=== PATIENT | female | born 1985 | race Caucasian/White ===

== ENCOUNTER → 2020-08-27 09:13 | Outpatient (CLI) | payer SELFPAY ==
--- NOTE | ~2020-08-27 | US_ITS ---
EXAMINATION: US breast BI limited HISTORY: Bilateral nipple discharge TECHNIQUE: Bilateral subareolar breast ultrasound is performed. FINDINGS: No sonographic correlate is identified for the patient's reported bilateral nipple discharg e. Normal-appearing subareolar ducts are seen without evidence of an intraluminal mass. IMPRESSION: No specific sonographic correlate is identified for the patient's reported nipple discharge. Further evaluation at this time should be based on clinical assessment. Continued follow-up physical examinat ion is recommended. BI-RADS Category 1: Negative Reviewed, dictated and finalized at location A. IMPRESSION: No specific sonographic correlate is identified for the patient's reported nipp le discharge. Further evaluation at this time should be based on clinical asses sment. Continued follow-up physical examination is recommended. BI-RADS Category 1: Negative
== END ==
PROVIDERS: Visit Provider Nurse Practitioner Obstetrics & Gynecology
DX: N64.52 Nipple discharge (principal)
CPT/HCPCS: 76642

== ENCOUNTER 2022-02-24 16:21 | Outpatient (CLI) | payer OTHER, SELFPAY ==
--- NOTE | ~2022-02-24 | XR_ITS ---
EXAMINATION: XR chest 2V DATE: 02/24/2022 16:39 INDICATION: Tobacco use TECHNIQUE: PA and lateral views of the chest are obtained. COMPARISON: 08/27/2019 FINDINGS: The lungs are free of acute opacities. There is no pleural effusion or pneumothorax. The ca rdiomediastinal silhouette is normal. The visualized bones and soft tissues are unremarkable. IMPRESSION: 1. No acute cardiopulmonary abnormality. Reviewed, dictated and finalized at location F.
== END 2022-02-24 16:22 | disposition home or self-care (01) ==
PROVIDERS: PCP Emergency Medicine; Visit Provider Emergency Medicine
DX: Z72.0 Tobacco use (principal)
CPT/HCPCS: 71046

== ENCOUNTER 2023-02-06 11:15 | Emergency (ER) | payer OTHER, SELFPAY ==
--- NOTE | ~2023-02-06 | US_ITS ---
EXAMINATION: US pelvic complete DATE: 02/06/2023 14:00 INDICATION: Right adnexal pain Comparison:No prior studies for comparison. TECHNIQUE: Multiple transabdominal sonographic images of the pelvis performed. FINDINGS: The uterus measures 8.3 x 3.5 x 4.3 cm. The endometrial complex measures 10 mm. The right ovary measures 5.6 x 2.1 x 2.7 cm and the left ovary measures 4.7 x 2.6 x 2.1 cm. There ar e small follicles in each ovary. Normal doppler signal in both ovaries. There is right ovarian cyst m easuring 1.8 cm. There is left ovarian cyst measuring 1.4 cm. There is no free fluid in the pelvis. There are no abnormal masses seen on either side. IMPRESSION: 1. Small bilateral ovarian cysts. Reviewed, dictated and finalized at location B.
[2023-02-06 11:23] VITALS: BP 149/102; PULSE 104; RESP 20; TEMP 36.2; O2SAT 100
[2023-02-06 12:57] LABS: Basophils Percent Auto 0.4 % (0.2-1.2); Eosinophils Percent Auto 0.5 % (0-4.4); Hematocrit 43.4 % (37.0-47.0); Hemoglobin 14.4 g/dL (12.0-15.0); Immature Granulocyte Absolute 0.03 K/mm3 (0.00-0.031); Immature Granulocyte Percent A 0.4 % (0-0.5); Lymphocytes Absolute Auto 2.06 K/mm3 (0.9-3.2); Lymphocytes Percent Auto 26.8 % (18.3-44.2); Mean Corpuscular HGB Conc 33.2 g/dl (32-36); Mean Corpuscular Hemoglobin 34.7 pg (26-34); Mean Corpuscular Volume 104.6 fl (80-100); Mean Platelet Volume 8.7 fl (7.4-10.4); Monocytes Absolute Auto 0.5 K/mm3 (0.1-0.6); Neutrophils Absolute Auto 5.1 K/mm3 (1.3-6.7); Neutrophils Percent Auto 65.9 % (45.5-73.1); Platelet Count Result 251 k/mm3 (150-375); Red Blood Count 4.15 M/mm3 (4.2-5.4); Red Cell Distribution Width 12.2 % (11.5-14.5); White Blood Count 7.7 K/mm3 (4.5-10.0)
[2023-02-06 13:10] LABS: INR 0.9; Prothrombin Time 12.1 Seconds (11.1-14.7)
[2023-02-06 13:11] LABS: Partial Thromboplastin Time 29.4 SECONDS (22.3-36.8)
[2023-02-06 13:14] LABS: Anion Gap 7 mmol/L (8-16); Blood Urea Nitrogen 12 mg/dL (7-17); Calcium 9.1 mg/dL (8.4-10.2); Carbon Dioxide 26 mmol/L (22-30); Chloride 103 mmol/L (98-107); Estimated CRCL calculation 97 ml/min; Estimated Glomerular Filt Rate > 60; Glucose 88 mg/dL (65-110); Potassium 3.8 mmol/L (3.4-5.0); Sodium 136 mmol/L (137-145)
[2023-02-06 13:29] LABS: Beta HCG Quantitative < 2.39 mIU/ML
--- NOTE | 2023-02-06 15:04 | ED.FEMALEGU ---
HPI - Female Genitourinary General Chief complaint: Vaginal Bleeding Stated complaint: Pelvic bleeding Time Seen by Provider: 02/06/23 12:03 Source: patient Mode of arrival: ambulatory Limitations: no limitations History of Present Illness HPI Narrative: 37-year-old otherwise healthy here with complaints of vaginal bleeding since yesterday associated with right lower abdominal pain. She states she passed a small clot her last LMP was 9 days ago. She states that she never had this kind of problem before. She now feels dizzy. No history of fever or chills denies any nausea or vomiting. MD elicited complaint: vaginal bleeding Onset (ago): day(s) (1) Vaginal bleeding: clots Exacerbating factors: none Relieving factors: none Associated symptoms: denies other symptoms Possible : unsure if Date of Last Menstrual Period: 01/28/23 Related Data Allergies Allergy/AdvReac Type Severity Reaction Status Date / Time amoxicillin Allergy Mild Dizziness Verified 02/06/23 11:50 Review of Systems Review of Systems: All systems reviewed & are unremarkable except as noted in HPI and below Constitutional: Constitutional: Reports no additional constitutional complaints Eyes: Eyes: Reports no additional eye complaints ENT: Reports system reviewed and no additional complaints, except as documented Cardiovascular: Cardiovascular: Reports no additional cardiovascular complaints Respiratory: Respiratory: Reports no additional respiratory complaints Gastrointestinal: Gastrointestinal: Reports no additional gastrointestinal complaints Genitourinary: Genitourinary: Reports as per HPI Musculoskeletal: Musculoskeletal: Reports no additional musculoskeletal complaints Integumentary/Breasts: Skin/Breast: Reports system reviewed and no additional complaints, except as docu Neurologic: Reports system reviewed and no additional complaints, except as documented Exam Narrative: GENERAL: Well-appearing, well-nourished, and in no acute distress. HEAD: Normocephalic, atraumatic. EYES: PERRLA and EOMI. NECK: Supple. CHEST: Clear to auscultation. No respiratory distress. HEART: Regular rate and rhythm. No murmur heard. Normal peripheral pulses. ABDOMEN: Soft, very minimal tenderness in the right adnexal area, nondistended, normal active bowel sounds. EXTREMITIES: Normal range of motion. No edema. SKIN: Warm, dry, no rash. NEURO: No focal deficits. Alert and oriented x3. PSYCH: Normal mood and affect. Course Vital Signs Vital signs: Vital Signs Temperature 36.2 C L 02/06/23 11:23 Pulse Rate 104 H 02/06/23 11:23 Respiratory Rate 20 02/06/23 11:23 Blood Pressure 149/102 H 02/06/23 11:23 Pulse Oximetry 100 02/06/23 11:23 Oxygen Delivery Room Air 02/06/23 11:23 Temperature 36.2 C L 02/06/23 11:23 Pulse Rate 104 H 02/06/23 11:23 Respiratory Rate 20 02/06/23 11:23 Blood Pressure 149/102 H 02/06/23 11:23 Pulse Oximetry 100 02/06/23 11:23 Oxygen Delivery Room Air 02/06/23 11:23 MDM - Female Genitourinary MDM Narrative Medical decision making narrative: 37-year-old here with vaginal bleeding since last night passed 1 clot exam is unremarkable except for mild right adnexal pain will do lab work and ultrasound. Differential Diagnosis Differential diagnosis: Likely ovarian cyst, ruptured ovarian cyst and dysmenorrhea Medical Records Attestation: I reviewed the patient's medical records. Lab Data Attestation: I reviewed the patient's lab results. 02/06/23 12:38 02/06/23 12:37 Labs: Lab Results 02/06/23 02/06/23 02/06/23 Range/Units 12:36 12:37 12:37 WBC (4.5-10.0) K/mm3 RBC (4.2-5.4) M/mm3 Hgb (12.0-15.0) g/dL Hct (37.0-47.0) % MCV (80-100) fl MCH (26-34) pg MCHC (32-36) g/dl RDW (11.5-14.5) % Plt Count (150-375) k/mm3 MPV (7.4-10.4) fl Immature Gran % (Auto) (0-0.5) % Neut % (Auto) (45.5-73.1
== END 2023-02-06 15:24 | disposition home or self-care (01) ==
PROVIDERS: Emergency Medicine; Emergency Provider Family Medicine; PCP Emergency Medicine
DX: N93.9 Abnormal uterine and vaginal bleeding, unspecified (principal); N83.202 Unspecified ovarian cyst, left side; N83.201 Unspecified ovarian cyst, right side
CPT/HCPCS: 36415; 76856; 80048; 84702; 85025; 85610; 85730; 86850; 86900; 86901; 99283

== ENCOUNTER 2023-06-29 13:48 | Outpatient (CLI) | payer OTHER, SELFPAY ==
--- NOTE | ~2023-06-29 | XR_ITS ---
Clinical Indication: Chest pain PA and lateral views of the chest: Comparison: 02/24/2022 Findings: The lungs are clear, without evidence of focal consolidation or pleural effusion. Cardiome diastinal silhouette is within normal limits. Bones and soft tissues are unremarkable. Impression: Normal chest. Reviewed, dictated and finalized at location . Impression: Normal chest.
== END 2023-06-29 13:49 | disposition home or self-care (01) ==
LOC: ANHIMG 13:50
PROVIDERS: PCP Emergency Medicine; Visit Provider Emergency Medicine
DX: R07.89 Other chest pain (principal)
CPT/HCPCS: 71046

== ENCOUNTER 2023-10-04 02:26 | Day surgery (SDC) | payer OTHER, SELFPAY ==
[2023-09-27 10:49] VITALS: BMI 23.1
--- NOTE | 2023-09-27 10:52 | PC.NURSE ---
Report to the Outpatient Waiting Room, entrance under the green pavilion located off [facility], at time 11:30AM on date 10-04-23. Planned Procedure Time: 1:30PM. Time changes happen often and if your time is changed the preop area will call you the afternoon before. - You and your visitor will be asked to self-screen and do not enter if you have any COVID symptoms. - A mask is optional within the hospital at this time. Patients may have clear liquids (water, carbonated beverages, clear teas, apple juice) until 3 hours prior to surgery (10:30AM) with a maximum of 20 ounces. - No food from midnight until time of surgery Take the following medications with a SIP of water the morning of surgery: AMLODIPINE DO NOT STOP ANY OF YOUR OTHER PRESCRIPTION MEDICATIONS PRIOR TO SURGERY ?EXCEPT THE FOLLOWING Medications to discontinue per physician: FISH OIL Date to take last dose 09-30-23 Please no make-up, nail german, hairspray, perfume, deodorant, or body powder the day of surgery. No jewelry (including any body piercings) or valuables the day of surgery, leave them at home. Please take a shower or bath the night before, or the morning of, surgery with an antibacterial soap. Wear comfortable, loose fitting clothing. - Jewelry must be removed prior to entering the operating room. Rings and piercings that are not removed may be cut off. - The hospital will not accept responsibility for valuables. - Please leave all valuables, including medications, at home the day of surgery. If you are going home after surgery, a licensed local combination truck driver must drive you home. - NO public transportation without another adult if you receive anesthesia. - We recommend that an adult stay with you for 24 hours following discharge. - We also recommend that you do not drive, make important decision, drink alcoholic beverages, or take any drugs that were not prescribed by your health care provider for at least 24 hours after your discharge time. Follow any additional instructions given to you from your surgeon. If you or anyone in your household have experienced Covid symptoms in the past week, please notify your surgeon or the nurse liaison at the phone number below for possible testing. Telephone instructions given to PATIENT and asked if any additional questions and then verbalized understanding. Patient advised to call surgeon office or pre surgery nurse liaison [phone] if any additional questions.
[2023-10-04 09:56] VITALS: BP 136/89; PULSE 87; RESP 16; TEMP 36.4; O2SAT 100; BMI 23.4
[2023-10-04] MEDS: SCOPOLAMINE 1.5 MG PATCH TRANSDERM (10:02)
[2023-10-04] MEDS: ACETAMINOPHEN 500 MG TABLET 1000 MG PO (10:02)
[2023-10-04] MEDS: LACTATED RINGERS 1,000 ML 30 ML IV CONT (10:03)
--- NOTE | 2023-10-04 10:36 | WPDANESEPPF ---
Anes - Initial Pre Proc Eval Procedure: Operation Date: 10/04/23 12:15 Proposed Procedures p Hysteroscopy with Biopsy of Endometrium and/or Polypectomy - Kevan Tian MD Date/Time: 10/04/23 10:36 Surgeon: Kevan Tian MD Pre Op Diagnosis: Endocervical Polyp Patient Data Age: 37 Gender: F Height: 1.65 m Weight: 63.85 kg Last Vital Signs Temp 36.4 C 10/04/23 09:56 Pulse 87 10/04/23 09:56 Resp 16 10/04/23 09:56 BP 136/89 10/04/23 09:56 Pulse Ox 100 10/04/23 09:56 O2 Del Method Room Air 10/04/23 09:56 Allergies Allergy/AdvReac Type Severity Reaction Status Date / Time amoxicillin AdvReac Mild Dizziness Verified 10/04/23 09:55 Home Medications Medication Instructions Recorded Confirmed Type amlodipine 5 mg tablet 5 mg PO DAILY #30 tabs 08/30/23 10/04/23 Rx omega 3-lmx-kxn-fish oil 1,600 5 ml PO DAILY 08/30/23 10/04/23 History mg-500 mg-800 mg/5 mL oral liquid Patient hx anesthesia problems: none Family hx anesthesia problems: none Results Review: All pre-operative results and documents have been reviewed as part of the pre-operative evaluation. [facility] Past Medical History Medical History (Updated 10/04/23 @ 10:36 by Augustine Rowland MD) Dyslipidemia Hypertension Tobacco abuse Social History Social History Smoking packs per day: 0.5 Smoking cigarettes per day: 10.0 Years smoked: 15 Smoking pack-years: 7.50 Smoking status: Current every day smoker Tobacco type: cigarettes Second hand tobacco smoke exposure: Yes Alcohol intake: current Drinks per week: 8 Alcohol use details: BEER Substance use: never Substance use type: does not use Living arrangements: with family Spiritual care concerns: No Anes - Eval Final PreProcedure Day of Procedure 10/04/23 10:36 Patient weight: normal Heart: regular rate and rhythm Lungs: clear to auscultation Airway: Mallampati scale class II Neurological: alert and oriented Last oral intake: >/= 8 hours ASA classification: II Emergent: no Anesthetic plan: proceed Anesthesia type and monitoring: general LMA and standard monitoring Results Review: All pre-operative results and documents have been reviewed as part of the pre-operative evaluation. Informed Consent: The patient's anesthetic plan and its attendant risks and benefits were discussed with the patient/family/POA. Questions were solicited and answers provided to the satisfaction of the patient/family/POA.
--- NOTE | 2023-10-04 11:25 | WPDHPUPDATE1 ---
History and Physical Update Update Date/Time: 10/04/23 11:25 History and Physical has been reviewed, including an updated exam of the patient. There are NO changes in the patient's condition. Risks, benefits, and alternatives have been discussed and questions answered. Patient agrees to proceed with procedure.
[2023-10-04 12:33] VITALS: BP 121/89; PULSE 86; RESP 14; O2SAT 100
--- NOTE | 2023-10-04 12:33 | W.PM.PROC2 ---
Procedure Note - Detailed Date of Procedure 10/04/23 Pre-op Diagnosis Endometrial polyp /lesion Post-op Diagnosis Same Procedure Performed Hysteroscopy D&C with polypectomy Surgeon Kevan Tian MD Anesthesia MAC Indications abnormal uterine bleeding Findings 2 cm intrauterine polyp / endometrial polyp. Normal vulva, vagina, cervix. Otherwise normal endometrial cavity. Description of Procedure the patient was taken the operating room. She was prepped and draped in the dorsal lithotomy position after induction of mac anesthesia. A speculum was placed in the vagina. The cervix was grasped with a tenaculum. The cervix was dilated about 1 cm. The hysteroscope was inserted. The intrauterine cavity and endocervix were evaluated. Hysteroscope was withdrawn. The polyp was grasped with a polyp forceps and avulsed. A medium-size curette was used to curettage all the surfaces were within the endometrial cavity. the sample was collected on Telfa and sent to pathology. The hysteroscope was reinserted and the above findings were noted. Patient tolerated the procedure well. The speculum and tenaculum were removed. She was taken recovery room in stable condition. Sponge lap and needle counts were correct x2. Estimated Blood Loss 40 Drains No Packing No Pathology Yes Complications No immediate complications Condition Stable Disposition PACU
[2023-10-04 13:00] VITALS: BP 139/81; PULSE 76; RESP 16
[2023-10-04 13:15] VITALS: BP 124/75; PULSE 72; RESP 16
== END 2023-10-04 13:20 | disposition home or self-care (01) ==
PROVIDERS: PCP Emergency Medicine; Visit Provider Obstetrics & Gynecology
PROC: 0U5B8ZZ Destruction of Endometrium, Via Natural or Artificial Opening Endoscopic (ICD-10-PCS; CPT 58563; principal; 2023-10-04 12:15)
DX: N84.0 Polyp of corpus uteri (principal); I10 Essential (primary) hypertension; E78.5 Hyperlipidemia, unspecified; F17.210 Nicotine dependence, cigarettes, uncomplicated
CPT/HCPCS: 58558; 88305; A9270; J1100; J2250; J2405; J2704; J3010; J7120

== ENCOUNTER 2024-07-20 07:18 | Emergency (ER) | payer OTHER, SELFPAY ==
--- NOTE | ~2024-07-20 | CT_ITS ---
EXAMINATION: CT soft tissue neck w con DATE: 07/20/2024 08:46 INDICATION: Dysphagia. TECHNIQUE: Computed tomography (CT) of the neck was performed with 75 mL Omnipaque-350 intravenous co ntrast. Automated exposure control and iterative reconstruction technique were employed. The dose-nghia gth product was 310.62 mGy-cm. COMPARISON: None FINDINGS: There are no pathologically enlarged lymph nodes. There is mucosal thickening in the parana harvinder sinuses. The mastoid air cells are normal. There are carious lesions of bilateral maxillary molar s. The pharynx and larynx are normal. There is mild kyphosis of cervical spine. IMPRESSION: 1. Dental disease. Reviewed, dictated and finalized at location A. IMPRESSION: 1. Dental disease.
[2024-07-20 07:26] VITALS: BP 183/122; PULSE 84; RESP 15; TEMP 36.6; O2SAT 99
[2024-07-20 08:26] VITALS: BP 162/107; PULSE 70; RESP 15; O2SAT 97
[2024-07-20 08:28] LABS: Basophils Percent Auto 0.7 % (0.2-1.2); Eosinophils Absolute Auto 0.1 K/mm3 (0-0.3); Eosinophils Percent Auto 1.8 % (0-4.4); Hematocrit 43.3 % (37.0-47.0); Hemoglobin 14.7 g/dL (12.0-15.0); Immature Granulocyte Absolute 0.01 K/mm3 (0.00-0.031); Immature Granulocyte Percent A 0.2 % (0-0.5); Lymphocytes Percent Auto 22.6 % (18.3-44.2); Mean Corpuscular HGB Conc 33.9 g/dl (32-36); Mean Corpuscular Hemoglobin 34.8 pg (26-34); Mean Corpuscular Volume 102.6 fl (80-100); Mean Platelet Volume 8.8 fl (7.4-10.4); Monocytes Absolute Auto 0.3 K/mm3 (0.1-0.6); Monocytes Percent Auto 6.8 % (2.6-8.5); Neutrophils Percent Auto 67.9 % (45.5-73.1); Platelet Count Result 252 k/mm3 (150-375); Red Blood Count 4.22 M/mm3 (4.2-5.4); Red Cell Distribution Width 11.8 % (11.5-14.5); White Blood Count 4.4 K/mm3 (4.5-10.0)
[2024-07-20 08:43] LABS: Alanine Aminotransferase 16 U/L (6-35); Albumin Level 4.4 g/dL (3.5-5.1); Alkaline Phosphatase 60 U/L (38-126); Anion Gap 8 mmol/L (4-12); Aspartate Amino Transferase 22 U/L (14-36); Bilirubin,Total 0.7 mg/dL (0.2-1.3); Blood Urea Nitrogen 12 mg/dL (7-17); Calcium 9.2 mg/dL (8.4-10.2); Carbon Dioxide 25 mmol/L (22-30); Chloride 101 mmol/L (98-107); Estimated CRCL calculation 74 ml/min; Estimated Glomerular Filt Rate > 60; Glucose 89 mg/dL (65-110); Sodium 134 mmol/L (137-145)
[2024-07-20 08:46] LABS: Estimated CRCL calculation 66 ml/min; Estimated Glomerular Filt Rate > 60
--- NOTE | 2024-07-20 09:09 | ED.GENADULT ---
HPI - General Adult General Chief complaint: Skin/Abscess/Foreign Body Stated complaint: unable to swallow food Time Seen by Provider: 07/20/24 07:36 History of Present Illness HPI narrative: This is a 38-year-old female presenting to the ED with chief complaint of dysphagia. Patient says that she was on vacation in [place] and she developed several cold sores in her mouth. However several days after that she started have difficulty swallowing. He says is not painful but is hard to initiate a swallow wishes were go get caught throat. She is able to swallow liquids without difficulty. She denies any other neurologic deficits. No history of dysphagia esophageal issues. Related Data Home Medications Medication Instructions Recorded Confirmed omega 6-evo-hgw-fish oil 1,600 5 ml PO DAILY 08/30/23 10/04/23 mg-500 mg-800 mg/5 mL oral liquid Allergies Allergy/AdvReac Type Severity Reaction Status Date / Time amoxicillin AdvReac Mild Dizziness Verified 07/20/24 07:30 [facility] Past Medical History Medical History Dyslipidemia Hypertension Tobacco abuse Social History Social History Smoking packs per day: 0.5 Smoking cigarettes per day: 10.0 Years smoked: 15 Smoking pack-years: 7.50 Smoking status: Current every day smoker Tobacco type: cigarettes Second hand tobacco smoke exposure: Yes Alcohol intake: current Drinks per week: 8 Alcohol use details: BEER Substance use: never Substance use type: does not use Living arrangements: with family Spiritual care concerns: No Exam Narrative: APPEARANCE: No apparent distress. Head: Cold sore the right lower lip, poor dentition, no ulcerations the posterior oropharynx, no erythema or exudates. EYES: EOMI, NOSE: Atraumatic NECK: Trachea midline, no thyroid masses or goiter RESPIRATORY: No increased rate of breathing, ctab CARDIOVASCULAR: RRR, ABDOMINAL: Non-distended MUSCULOSKELETAl: No obvious deformities NEURO: Alert. Cranial nerves 2-12 grossly intact. Sensation light touch, motor function cerebellar function intact for 4 extremities. Gait exam was normal. SKIN:: Warm, dry. Normal color PSYCHIATRIC: Normal affect Course Vital Signs Vital signs: Vital Signs Temperature 97.8 F 07/20/24 07:26 Pulse Rate 84 07/20/24 07:26 Respiratory Rate 15 07/20/24 07:26 Blood Pressure 183/122 H 07/20/24 07:26 Pulse Oximetry 99 07/20/24 07:26 Oxygen Delivery Room Air 07/20/24 07:26 Temperature 97.8 F 07/20/24 07:26 Pulse Rate 70 07/20/24 08:26 Respiratory Rate 15 07/20/24 08:26 Blood Pressure 162/107 H 07/20/24 08:26 Pulse Oximetry 97 07/20/24 08:26 Oxygen Delivery Room Air 07/20/24 07:26 Medical Decision Making MDM Narrative Medical decision making narrative: -Course: 38-year-old female presenting with dysphagia x1 week. CT showed poor dentition but no masses or other findings in the neck. Her neurologic exam is normal and she has no other neurologic complaints. Patient is able to tolerate liquids she has normal vital signs and normal laboratory studies. The patient will be given a course of oral acyclovir as her symptoms started with the development cold sores in case she's developed HSV esophagitis. Patient will be a follow-up her GI doctor as she will need endoscopy for next part of her workup. -DDX includes but is not limited to: Dysphagia HSV esophagitis, food impaction, esophageal stricture mass, esophageal motility issue -Co-morbidities complicating care: HSV 1 -Independent interpretation of studies: Labs and imaging reviewed -Interventions: Acyclovir 800 mg -Shared decision making / Disposition: discharged. -RX: acyclovir Vital Signs Vital Signs: Vital Signs Temperature 97.8 F 07/20/24 07:26 Pulse Rate 84 07/20/24 07:26 Respiratory Rate 07/20/24 07:26 Blo
[2024-07-20] MEDS: ACYCLOVIR 400 MG TABLET 800 MG PO (09:56)
[2024-07-20 09:59] VITALS: BP 144/110; PULSE 99; RESP 15; O2SAT 100
[2024-07-20 10:31] VITALS: BP 134/97; PULSE 70; RESP 14; TEMP 36.4; O2SAT 99
== END 2024-07-20 10:34 | disposition home or self-care (01) ==
PROVIDERS: Emergency Provider Emergency Medicine; PCP Emergency Medicine
DX: R13.10 Dysphagia, unspecified (principal); I10 Essential (primary) hypertension; E78.5 Hyperlipidemia, unspecified; F17.210 Nicotine dependence, cigarettes, uncomplicated; Z79.899 Other long term (current) drug therapy
CPT/HCPCS: 36415; 70491; 80053; 85025; 99284; A9270; Q9967

== ENCOUNTER 2024-08-06 08:24 | Outpatient (CLI) | payer OTHER, SELFPAY ==
--- NOTE | ~2024-08-06 | XR_ITS ---
EXAMINATION: XR barium swallow DATE: 08/06/2024 08:59 INDICATION: Esophageal dysphagia. Globus sensation. TECHNIQUE: The patient drank thick barium, gas-producing crystals, and thin barium. Fluoroscopy of th e hypopharynx and esophagus was performed. Fluoroscopy exposure time was 0.5 minutes. The total numbe r of images was 222. The dose-area product was 0.327 Gy-cm^2. COMPARISON: Neck CT 07/20/2024 FINDINGS: There is no mass or stricture of the esophagus. Esophageal motility is normal. There is no hiatal hernia. There was no gastroesophageal reflux with provocative maneuvers. IMPRESSION: 1. Normal esophagram. Reviewed, dictated and finalized at location A. IMPRESSION: 1. Normal esophagram.
== END 2024-08-06 08:25 | disposition home or self-care (01) ==
PROVIDERS: PCP Emergency Medicine; Visit Provider Nurse Practitioner
DX: R13.10 Dysphagia, unspecified (principal); R09.A2 Foreign body sensation, throat
CPT/HCPCS: 74220

== ENCOUNTER 2025-05-13 00:50 | Day surgery (SDC) | payer BC, SELFPAY ==
[2025-05-09 15:43] VITALS: BMI 20.9
--- OUTSIDE RECORDS SUMMARY | 2025-05-13 00:53 | XMS_ITS ---
Author Organization [facility] Address [address] [id number] Care Team Providers Care Waterproofing Machine Operator Name Role Phone El Raines Primary Care Provider Marlene Geiger Unavailable [phone] Allergies No Known Allergies REASON FOR VISIT review ct//jl Medications Medication SIG (Take, Route, Frequency, Duration) Notes Start Date End Date Status NASACORT ALLERGY 24HR 55 mcg/inh 2 spray(s) in each nostril once a day for 30 days Active Encounters Encounter Location Date Provider Diagnosis [facility] [address] [id number] 02/25/2025 Marlene Wood Plan Of Treatment No Information Progress Notes * Joann FORBESDOB: 5 (39 yo F)Acc No.[id number]:02/25/2025 Progress Notes Patient: Joann DAMON Appointment Provider: BOBO Gagnon :1985 A ge:39 Y S ex:Female Date:02/25/2025 Address:[address], [id number] Pcp:El Raines Subjective: * Chief Complaints: * [address]//jl. * HPI: C onstitutional: 02/07/25 Patient returns to the office today for throat, sinus problems. She notes post nasal drainage. She did not have CT done due to scheduling problems. 09/24/24---finished Nystatin twice and it did help, but feels like she is having drng and her throat still bothers her on the right side. Prior CT soft neck to review from another provider. 08/30/24---she states suddenly in june she felt something stuck in her throat and she went to the er and she had a CT and all it showed was some dental dx--she sates if she drinks or eats it feels lijke she can not get it down ---her throat chambers and it causes pressure in her ear...it also feels like its sharp. she did see an ent and they sent her to GI and she had a swallow test done and it was normal also. pt is a smoker. she is not eating and lost 20lbs. reports shingles last month. 02/07/25---noone called to schedule CT had FLUA so did not get to cherry picker operator nose spray and antibioitc per pharamcy records RX was told . Had temporary relief, then stress at work and feels all over again. globus sensation. * ROS: E NT: no s ore throat?. n o a llergies?. n o r unny nose?. n o i tchy eyes?. n o s tuffy nose?. * Medical History: M edical History Verified. * Surgical History: C section,uterus,polyps, . * Family History: N o Family History documented.. * Social History: S moking: yes p acks/day. S mokeless Tobacco: no. Alcohol: yes s ocially. R ecreational drug use: no. * Medications: T aking NASACORT ALLERGY 24HR 55 mcg/inh spray 2 spray(s) in each nostril once a day , Discontinued FLUCONAZOLE 150 mg tablet 1 tab(s) orally once daily , Medication List reviewed and reconciled with the patient * Allergies: N .K.D.A. Objective: * Vitals: * Examination: G eneral Examination: General appearance: N AD, pleasant, well built and nourished. H EENT: u nremarkable, TM's normal, intact, nose clear, turbinates normal, dentition adequate, pharynx and tonsils normal, No thyromegaly or adenopathy. H ead: N C/AT. E yes PERRLA, vision intact bilateral. E AR E xternal auditory canal patent, TMs intact, No middle ear effusion, No mastoid tenderness or swelling. N ose s eptum midline, no masses or polyps. O ral cavity: , poor dentition. N ania, thyroid : s upple, no lymphadenopathy.?Nasopharynx N o masses, or lesions. O ropharynx N ormal, Soft palate intact, grade 1, No bleeding. N eurologic exam: A lert and Oriented x3, Cranial Nerves II-XII Grossly intact bilaterally. L ungs: g ood air exchange, symmetric respiratory excursion, no intercostal retractions. S kin: n ormal, no rash. E xtremities: n o clubbing, no edema. L ymphatics n o lymphadenopathy. A bdomen: n o masses felt, no hepatosplenomegaly. B reasts : n ormal. * Physical Examination: Assessment: Plan: * Treatment: * Images: * Electronic signature of CASEY Zapata on 05/13/2025 at 12:53 AM CDT Sign off status: Pending * Appointment Provider: BOBO Gagnon Date: 0 02/25/2025 Generated for Mima tristan/Vince/Jovany on: 0 05/13/2025 12:53 AM CDT History and Physical Notes * HPI (History of Present Illness) Category Sub-Category Detail Notes Category Not es Constitutional 02/07/25 Patient returns to the office today for throat, sinus problems. She notes post nasal drainage. She did not have CT done due to scheduling problems. 09/24/24---finished Nystatin twice and it did help, but feels like she is having drng and her throat still bothers her on the right side. Prior CT soft neck to review from another provider. 08/30/24---she states suddenly in june she felt something stuck in her throat and she went to the er and she had a CT and all it showed was some dental dx--she sates if she drinks or eats it feels lijke she can not get it down ---her throat chambers and it causes pressure in her ear...it also feels like its sharp. she did see an ent and they sent her to GI and she had a swallow test done and it was normal also. pt is a smoker. she is not eating and lost 20lbs. reports shingles last month. 02/07/25---noone called to schedule CT had FLUA so did not get to cherry picker operator nose spray and antibioitc per pharamcy records RX was told . Had temporary relief, then stress at work and feels all over again. globus sensation. Examination Category Sub-Category Detail Notes Category Not es General Examination HEENT: unremarkable , TM's normal, intact, nose clear, turbinates normal, dentition adequate, pharynx and tonsils normal, No thyromegaly or adenopathy Neck, thyroid : supple, no lymphaden opathy Lungs: good air exchange, s ymmetric respiratory excursion, no intercostal retractions Abdomen: no masses felt, no h epatosplenomegaly Extremities: no clubbing, no dahlia a General appearance: NAD, pleasant, well built and nourished Skin: normal, no rash Neurologic exam: Alert and Oriented x 3, Cranial Nerves II-XII Grossly intact bilaterally Oral cavity: , poor dentition Breasts : normal Head: NC/AT Oropharynx Normal, Soft palate intact, grade 1, No bleeding Nose septum midline, no m asses or polyps Nasopharynx No masses, or lesion s EAR External auditory ca nal patent, TMs intact, No middle ear effusion, No mastoid tenderness or swelling Eyes PERRLA, vision intac t bilateral Lymphatics no lymphadenopathy
--- OUTSIDE RECORDS SUMMARY | 2025-05-13 00:53 | XMS_ITS | Continuity of Care Document ---
Author Organization [facility] Address [address] [address] [place] [address] Phone Care Team Providers Care High Density Press Operator Name Role Phone El Raines MD Unavailable Unavailable Allergies, Adverse Reactions, Alerts Substance Reaction Status Criticality No Known Allergies Active No Inform ation Procedures Procedure Date PREV VISIT, EST, AGE 40-64 OFFICE/OUTPATIENT VISIT, EST OFFICE/OUTPATIENT VISIT, EST OFFICE/OUTPATIENT VISIT, EST OFFICE/OUTPATIENT VISIT, EST OFFICE/OUTPATIENT VISIT, EST PREV VISIT, EST, AGE 18-39 OFFICE/OUTPATIENT VISIT, EST OFFICE/OUTPATIENT VISIT, EST PREV VISIT, EST, AGE 18-39 PREV VISIT, EST, AGE 18-39 OFFICE/OUTPATIENT VISIT, EST OFFICE/OUTPATIENT VISIT, EST Advance Directives Directive Yes / No Effective Date File Name No Information Encounters Encounter Description Practice Location Reason(s) For Visit Diagnoses Date Provider Providers Copied on Encounter PREV VISIT, EST, AGE 40-64 [facility], [address], [place], [place], [id number], [place] tel:[phone] [facility] physical (chief complaint) Encounter for general adult medical exam w abnormal findingsDysphagiaSe condary polycythemia [address], [place], [place], [address] , [place]. tel:[phone] Referring Provider: El Raines, [address], [place], [place], [address]. tel:[phone] OFFICE/OUTPA TIENT VISIT, [facility], [address], [place], [place], [address], [place] tel:[phone] [facility] dysphagia1 (chief complaint) DysphagiaGeneralize d Anxiety Disorder [address], [place], [place], [address] , [place]. tel:[phone] Referring Provider: El Raines, [address], [place], [place], [address]. tel:[phone] OFFICE/OUTPA TIENT VISIT, [facility], [address], [place], [place], [address], [place] tel:[phone] [facility] dysphagia1 (chief complaint) DysphagiaGERD w/o esophagitisGenerali zed Anxiety Disorder [address], [place], [place], [address] , [place]. tel:[phone] Referring Provider: Vicky Mccrack[address], [place], [place], [address]. tel:[phone] OFFICE/OUTPA TIENT VISIT, [facility], [address], [place], [place], [address], [place] tel:[phone] [facility] back pain1 (chief complaint) polycythem ia1 (chief complaint) fatigue1 (chief complaint) HTN (chief complaint) Lumbago with sciatica, right sideSecondary polycythemiaFatigue Essential (primary) hypertension [address], [place], [place], [address] , [place]. tel:[phone] Referring Provider: El Raines [address], [place], [place], [address]. tel:[phone] OFFICE/OUTPA TIENT VISIT, [facility], [address], [place], [place], [address], [place] tel:[phone] [facility] HTN (chief complaint) chest pain1 (chief complaint) fatigue1 (chief complaint) Secondary polycythemiaDizzine ssFatigueAnt chest-wall painTobacco use [address], [place], [place], [address] , [place]. tel:[phone] Referring Provider: [address], [place], [place], [address]. tel:[phone] PREV VISIT, EST, AGE 18-39 [facility], [address], [place], [place], [address], [place] tel:[phone] [facility] physical (chief complaint) Encounter for general adult medical examination without abnormal findings [address], [place], [place], [address] , [place]. tel:[phone] Referring Provider: Vicky Mcc[address]en [address], [place], [place], [address]. tel:[phone] OFFICE/OUTPA TIENT VISIT, [facility], [address], [place], [place], [address], [place] tel:[phone] [facility] leg pain1 (chief complaint) HLP (chief complaint) poly (chief complaint) Secondary polycythemiaOther specified abnormal findings of blood chemistryNeuropathy Tobacco useMixed hyperlipidemia [address], [place], [place], [address] , [place]. tel:[phone] Referring Provider: [address], [place], [place], [address]. tel:[phone] OFFICE/OUTPA TIENT VISIT, EST [facility], [address], [place], [place], [address], [place] tel:[phone] [facility] [place] [facility] HLP (chief complaint) hct (chief complaint) thyroid1 (chief complaint) foot pain1 (chief complaint) HyperlipidemiaOther specified abnormal findings of blood chemistrySecondary polycythemiaPain in left footDisorder of thyroid, unspecifiedTobacco use [address], [place], [place], [address] , [place]. [phone] Referring Provider: Vicky Mcc[address]en [address], [place], [place], [address]. tel:[phone] PREV VISIT, EST, AGE 18-39 [facility], [address], [place], [place], [address], [place] [phone] [facility] physical (chief complaint) Encntr for general adult medical exam w/o abnormal findings [address], [place], [place], [address] , [place]. [phone] Referring Provider: Vicky Mcc[address], [place], [place], [address]. tel:[phone] PREV VISIT, EST, AGE 18-39 [facility], [address], [place], [place], [address], [place] tel:[phone] [facility] PHysical (chief complaint) Encntr for general adult medical exam w/o abnormal findings [address], [place], [place], [address] , [place]. [phone] Referring Provider: Vicky Mcc[address], [place], [place], [address]. tel:[phone] OFFICE/OUTPA TIENT VISIT, EST [facility], [address], [place], [place], [address], [place] tel:[phone] [facility] back pain (chief complaint) thymus issue (chief complaint) LumbagoAbscess of thymus [address], [place], [place], [address] , [place]. [phone] Referring Provider: Vicky Mcc[address], [place], [place], [address]. tel:[phone] OFFICE/OUTPA TIENT VISIT, EST [facility], [address], [place], [place], [address], tel:[phone] [facility] cough (chief complaint) CoughBenign neoplasm of thymusChest Pain, Unspecified [address], [place], [place], [address] , [place]. tel:[phone] Referring Provider: El Raines, [address], [place], [place], [address]. tel:[phone] Family History Family Member Type Diagnosis Age At Onset Father Problem (finding) Alive and well Mother Problem (finding) Alive and well Sister Problem (finding) Alive and well Payers Payer name Insurance type Covered alliance party ID Authoriza tion(s) BS CI [id number] Social History Type Description Quantity Date Captured Comments Alcohol Use Details beer Caffeine Use Details Unknown Tobacco Use Status Light cigarette smok er (1-9 cigs/day) Smoking Status Light tobacco smoker Sex Female Vital Signs Date / Time: Height Weight BMI Pulse Rate Blood Pressure Temperature Respiratory Rate Body Surface Area Head Circumference BMI percentile Pulse Ox Inhaled Ox 9:25 AM 65.00 in 133.00 lbs 22.1 3 kg/m eter (2) 86 /min 130/70 mm[Hg] 97.8 F 16 /min Chief Complaint And Reason For Visit From encounter dated '05/05/2025 09:24'. physical (chief complaint). Description: Pt needs annual physical. pt has chronic dysphagia and also globus feeling. Pt denies any issue with drinking water Pt has above symptoms for more than one year. Pt failed PPi .pt saw two ENT and she had scope done and she was treated for oral thrush and chronic sinusitis. Pt was given nortriptyline but she does not want to start it. pt states that she is afraid of eating due to dysphagia and globus feeling pt had negative soft tissue of neck CT 7 monthsago. Pt wants EGD .pt feels fatigue. Pt denies any sore throat. Pt has high MCV and polycythemia Plan Of Treatment Date Type Action Status Goal Special diet education compl eted Goal Tobacco cessation counseling completed Goal Special diet education compl eted Goal Tobacco cessation counseling completed Referral Ordered: ESOPH ENDOSCOPY, DILATION ordered Referral Ordered: MAMMOGRAM, SCREENING ordered Referral Ordered: Otolaryngology (related to Dysphagia) ordered Referral Ordered: Referrals: Otolaryngology. Evaluate and treat ordered Referral Ordered: Physical Therapy (related to Lumbago with sciatica, right side) ordered Referral Referred To: Physical Therapy Ordered: Referrals: Physical Therapy. Evaluate and treat ordered Referral Ordered: SLEEP STUDY, ATTENDED ordered Referral Referred To: Niko Cadet [address], [phone] Ordered: Referrals: Niko Cadet. Evaluate and treat ordered Referral Ordered: Hematology (related to Encounter for general adult medical examination without abnormal findings) ordered Referral Ordered: Referrals: Hematology. Evaluate and treat ordered Referral Ordered: MOTOR NERVE CONDUCTION TEST ordered Referral Ordered: FOOT XRAY, TWO VIEW Left ordered Referral Ordered: CHEST X-RAY PA/LAT TWO-VIEWS ordered Referral Ordered: US THYROID ordered Referral Ordered: UPPER GI W/ KUB ordered Referral Referred To: Physical Therapy Ordered: Referral: Physical Therapy. ordered Referral Ordered: CT THORAX W/O & W/DYE ordered History Of Present Illness Encounter Date Complaint History Of Prese nt Illness physical Pt needs annual physical. pt has chronic dysphagia and also globus feeling. Pt denies any issue with drinking water Pt has above symptoms for more than one year. Pt failed PPi .pt saw two ENT and she had scope done and she was treated for oral thrush and chronic sinusitis. Pt was given nortriptyline but she does not want to start it. pt states that she is afraid of eating due to dysphagia and globus feeling pt had negative soft tissue of neck CT 7 months ago. Pt wants EGD .pt feels fatigue. Pt denies any sore throat. Pt has high MCV and polycythemia dysphagia1 Pt c/o acute ons et of dysphagia and globus feeling since 4 weeks ago. pt went to ER and she had negative CT scan of neck and esophagram and she was evaluated by ENT but could not do a visual exam due to anxiety. Pt was prescribed omeprazole but has not helped Pt is very anxious about the globus feeling Pt feels burning feeling around right side of throat area, especially when she swallows. Pt denies any pain. pt states that she feels something on the right of her throat area all the time. Pt denies any drooling Pt states that she feels very anxious about swallowing now. pt denies any chest pain. Pt has not done scope yet Pt states that she wants to change GI doctor and see another ENT. Pt does have some anxiety dysphagia1 Pt c/o acute ons et of dysphagia and globus feeling since two weeks ago. pt went to ER and she had negative CT scan of neck and esophagram and she was evaluated by ENT but could not do a visual exam due to anxiety. Pt was prescribed omeprazole but has not helped Pt is very anxious about the globus feeling Pt feels burning feeling around right side of throat area, especially when she swallows. Pt denies any pain. pt states that she feels something on the right of her throat area all the time. Pt denies any drooling Pt states that she feels very anxious about swallowing now. pt denies any chest pain polycythemia1 Pt has polycythe maye and high MCV with normal b12 Pt was evaluated by hematology and she was told that it is due to smoking anc alcohol Pt quit alcohol recently. fatigue1 Pt states that h er fatigue improved and she did not do sleep study. HTN Pt has mild HTN today pt denies any chest pain or headache Pt has been having some stress from work back pain1 Pt c/o acute ons et of right lower back pain with radiation to right leg with right leg numbness and tingling for 4-5 days pt denies any injury Pt denies any loss of bowel or bladder control or saddle area paresthesia Pt states that she notices right lower back pain when she sits but when she stands, she notices the sciatica symptoms down to right leg. Pt denies any weakness. Pt denies any injury. chest pain1 Pt has intermitt ent midsternal chest pain for several months Pt denies any sob Pt denies any recent travel or bedrest Pt denies any calf pain Pt denies any exertional chest pain .Pt denies any acute chest pain Pt is a smoker and she is very concerned about lung CA. Pt wants chest x ray fatigue1 Pt c/o feeling t ired all the time Pt states that she wakes up feeling tired and she can take nap throughout the day. Pt is not sure if she snores. HTN Pt states that h er bp has been running high at home and sometimes around 160s. Pt denies headache Pt feels occasional dizziness but no vertigo. Pt denies any orthostasis. Pt denies any syncope physical Pt needs annual physical. Pt no longer has any lower extremity neuropathy symptoms and she did not do NCS. Pt denies any hemoptysis, sob or cough Pt had negative chest x ray. Pt still smoking but less now. Pt had lab done which showed polycythemia and high MCV Pt used to drink heavy alcohol but she states that she drinks less now. Pt denies any other complaints leg pain1 Pt c/o acute ons et of heat sensation both LE and feet for 5 months. Pt states that both legs feels normal temp. Pt c/o numbness and tingling bottom of feet worse on right lower side. Pt denies any low back pain Pt denies any loss of bowel or blader control or saddle area paresthesia. Pt denies any leg edema or claudication symptoms HLP Pt has HLP. poly Pt has persisten t polycythemia and high MCV. Pt deferred hematology referral in the past. Pt does smoke HLP Pt has HLP Pt hickman s high TG. Pt is not on any diet hct Pt has mildly hi gh HCT Pt has high MCV. Pt is not anemic. Pt states that she rarely drinks alcohol. Her b12 and folate is ok thyroid1 Pt had abnormal thyroid lab done in [place] ,Pt had thyroid ultrasound, lab done and are all normal. Her TFT are normal also. Pt denies any neck pain or dysphagia. Pt states that she was given synthroid back in [place] but she never took any synthroid foot pain1 Pt c/o acute ons et of dorsal left foot pain x 20 days. Pt denies any injury. Pt denies any numbness and tingling Pt c/o burning feeing around dorsal left foot. Pt states that pain is worse with walking and weight bearing and she has throbbing pain dorsal left foot area. Pt denies any warmth. Pt denies any plantar surface pain pt denies any claudication Pt notices burning type of pain dorsal distal left foot. Pt denies any calf pain physical Pt needs annual physical. Pt feels very fatigue and weight gain for the past two years. Pt was in [place] and she saw doctor in [place] who diagnosed her with hypothyroidism. Pt currently is on unknown dose of synthroid per patient pt. Pt also has enlarged thyroid. Pt denies any dysphagia. Pt denies any chest pain or headache or palpitation. PHysical Pt needs annual physical. Pt states that she lost 17 pounds during last 7 months Pt feels tired, no appetite, dizzy. Pt denies any chest pain or headache Pt states that she feels slighlty hang over in the morning as if she drank a lot of aclohol. Pt denies any nauea, vomiting, abd pain. Pt denies any diarrhea Pt states that she feels some pressure right upper quadrant somtimes after food. Pt has very mild GERD symptoms but not bad Instructions Date Instruction Additional Infor roxana Special diet education Related t o Body mass index (BMI) 25.0-25.9, adult Stop smoking. Related to Hyper lipidemia Increase activity. Related to Hy perlipidemia Follow a low sodium diet. Relate d to Hyperlipidemia Weight management Related to Enc ntr for general adult medical exam w/o abnormal findings Quit smoking Related to Encnt r for general adult medical exam w/o abnormal findings Increase physical activity Relat ed to Encntr for general adult medical exam w/o abnormal findings Special diet education Related t o Body mass index (BMI) 26.0-26.9, adult Assessments Type Assessment Date assessment Encounter for general adult medi emy exam w abnormal findings assessment Dysphagia assessment Secondary polycythemia Mental Status Date Cognitive Assessment Orientation - [place] ed to time, place, person, situation.
--- OUTSIDE RECORDS SUMMARY | 2025-05-13 00:53 | XMS_ITS | Data Portability ---
Author Organization [facility] Address [address] [place] [address] [place] [address] Care Team Providers Care Neurourologist Name Role Phone ZULEMA MARTE Primary Care Provider Assessment No assessment recorded. Plan of Treatment Reminders Order Date Submit Date Provider Last Modified By Organization Details Last Modified Time Details Appointments None recorded. Lab None recorded. Referral None recorded. Procedures None recorded. Surgeries hysteroscop y, surgical, with biopsy of endometrium and/or polypectomy (SURG) [address] [facility] [place] [address], [facility] [address], [place], [address], 3 10:51:51 Imaging MAMMO, diagnostic, digital, bilateral 2023 024 [facility] (Mammography) , [address], [place], [address], 5 05:01:33 US, breast, unilateral - right breast pain, right breast lump around 5 oclock 2023 024 [facility] (Mammography) , [address], [place], [address], 5 05:01:33 US, transvagina l 2022 023 [email or web address] [place], [address], [address], [place], [address], 3 22:31:31 US, pelvis 2022 023 [email or web address] [place], [address], [address], [place], [address], 3 22:31:31 Medication Orders norethindro ne (contracept sebastian) 0.35 mg tablet 2022 024 [id number], [address], [place], [place], [id number], 4 15:25:32 Patient TargetsNo targets recorded. Patient InstructionsNo instructions recorded. Reason for Referral None Reported. Results Created Date Observation Date Name Description Value Unit Range Abnormal Flag Note LastModifiedBy Organization Detail LastModifiedTime 07/31/20 23 07/31/2023 IMAGE GUIDE D PAP AND HPV REGAR DLESS image guided Pap, HPV regardless of Pap result SEE RESULT S BELOW CASE REPOR T: Cytol ogy Gynec ologi karla Repor t Case: [id number] Autho rocio g Provi julee: Khadijah Abraham, YOHANNES Colle cted: 07/31 1640 Order ing Locat ion: [place] [facility] Recei konstantin: 08/01 0937 First Scree n: Katharina Gupta Speci men: Scree selene Pap - Image d, Cervi x STATE MENT OF ADEQU ACY: Satis facto ry for evalu ation Trans forma tion zone compo nent prese nt FINAL DIAGN OSIS: Negat sebastian for Intra epith elial Lesio n or Tahmina coates (NIL) . Shift in enmanuel sugge stive of bacte rial vagin osis. Elect isabel avalos by Katharina Gupta on 2022 at 4:53 PM ----- ----- ----- ----- ----- ----- ----- ----- ----- ----- ----- ----- ----- ----- ----- ----- ----- ---- HPV RESUL TS: HPV mRNA E6/E7 : No HPV mRNA Detec iwona NOTE: This high risk HPV mRNA assay detec ts fourt een high- risk HPV types (16, 18, 31, 33, 35, 39, 45, 51, 52, 56, 58, 59, 66, 68) witho ut diffe renti ation . COMME NT: This speci men was revie wed by a Cytot echno logis t and/o r Patho logis t (as indic ated in this repor t) after evalu ation using the Thinp rep Imagi ng Syste m. CLINI KARLA INFOR MATIO N: Menst rual Statu s: LMP (if appli cable ): Clini karla Histo ry/Pr eviou s Pap: Type of Neopl justa (if appli cable ): Signi fican t Clini karla Findi ngs: Other Histo ry: Hormo darryl (if appli cable ): PAP EDUCA MARYBETH L NOTE: The Pap Test is a scree selene test with an inher ent false negat sebastian rate. Liqui d-bas ed sampl ing may decre ase, but will not elimi jayjay, false negat sebastian resul ts. A negat sebastian resul t does not precl ude the prese nce and/o r devel opmen t of disea se, since the prese nce of abnor mal cells in the sampl e depen ds on the locat ion of the lesio n and sampl ing techn ique. Patricia nued regul ar scree selene is the best metho d of cance r preve ntion . If repor iwona cytol ogic findi ng do not corre late with physi karla and/o r histo rical findi ngs, furth er inves tigat ion is recom claribel d, as clini mirella holt nted. Not Available [facility] (Lab) [address], [place], [address], 08/02/2023 17:57:30 07/31/20 23 07/31/2023 TRICH OMONA S VAGIN MINDA (RRNA ) trichomonas vaginalis ribosomal RNA (rrna) Negati ve negati ve Not Available [facility] (Lab) [address], [place], [address], 08/02/2023 17:57:31 07/31/20 23 07/31/2023 CT/GC (KENRICK) , THINP REP VIAL chlamydia trachomatis, PCR Negati ve negati ve Not Available [facility] (Lab) [address], [place], [address], 08/02/2023 17:57:31 07/31/20 23 07/31/2023 CT/GC (KENRICK) , THINP REP VIAL neisseria gonorrhoeae, PCR Negati ve negati ve Not Available [facility] (Lab) [address], [place], [address], 08/02/2023 17:57:31 09/20/20 23 09/20/2023 CBC W/DIF F WBC 6.0 10'3/ uL 3.6-10 .2 Not Available [facility] (Lab) [address], [place], [address], 09/21/2023 02:17:56 09/20/20 23 09/20/2023 CBC W/DIF F RBC 4.23 10'6/ uL (based on docume nted legal sex) 4.10-5 .30 Not Available [facility] (Lab) [address], [place], [address], 09/21/2023 02:17:56 09/20/20 23 09/20/2023 CBC W/DIF F HGB 13.9 g/dL (based on docume nted legal sex) 11.9-1 5.8 Not Available [facility] (Lab) [address] [place], [address], 09/21/2023 02:17:56 09/20/20 23 09/20/2023 CBC W/DIF F HCT 42.7 % (based on docume nted legal sex) 37.4-4 8.3 Not Available [facility] (Lab) [address], [place], [address], 09/21/2023 02:17:56 09/20/20 23 09/20/2023 CBC W/DIF F MCV 100.9 fL 82.0-9 9.0 high Not Available [facility] (Lab) [address], [place], [address], 09/21/2023 02:17:56 09/20/20 23 09/20/2023 CBC W/DIF F MCH 32.9 pg 27.0-3 3.0 Not Available [facility] (Lab) [address] [facility], [place], [address], 09/21/2023 02:17:56 09/20/20 23 09/20/2023 CBC W/DIF F MCHC 32.6 g/dL 32.0-3 6.0 Not Available [facility] (Lab) [address] [facility], [place], [address], 09/21/2023 02:17:56 09/20/20 23 09/20/2023 CBC W/DIF F RDW 12.4 % 11.0-1 5.0 Not Available [facility] (Lab) [address] [facility], [place], [address], 09/21/2023 02:17:56 09/20/20 23 09/20/2023 CBC W/DIF F plt 284 10'3/ uL 150-45 0 Not Available [facility] (Lab) [address] [facility], [place], [address], 09/21/2023 02:17:56 09/20/20 23 09/20/2023 CBC W/DIF F MPV 9.3 fL 9.8-12 .7 low Not Available [facility] (Lab) [address], [place], [address], 09/21/2023 02:17:56 09/20/20 23 09/20/2023 CBC W/DIF F NRBC's 0.0 % 0 Not Available [facility] (Lab) [address] [facility], [place], [address], 09/21/2023 02:17:56 09/20/20 23 09/20/2023 CBC W/DIF F absolute NRBCs 0.0 10'3/ uL 0 Not Available [facility] (Lab) [address] [facility], [place], [address], 09/21/2023 02:17:56 09/20/20 23 09/20/2023 CBC W/DIF F neutrophils 66.7 % 37.0-7 2.0 Not Available [facility] (Lab) [address] [facility], [place], [address], 09/21/2023 02:17:56 09/20/20 23 09/20/2023 CBC W/DIF F lymphocytes 24.0 % 16.0-4 8.0 Not Available [facility] (Lab) [address] [facility], [place], [address], 09/21/2023 02:17:56 09/20/20 23 09/20/2023 CBC W/DIF F monocytes 6.3 % 4.0-14 .0 Not Available [facility] (Lab) [address] [facility], [place], [address], 09/21/2023 02:17:56 09/20/20 23 09/20/2023 CBC W/DIF F eosinophils 1.5 % 0.0-9. 0 Not Available [facility] (Lab) [address] [facility], [place], [address], 09/21/2023 02:17:56 09/20/20 23 09/20/2023 CBC W/DIF F basophils 1.2 % 0.0-2. 0 Not Available [facility] (Lab) [address] [facility], [place], [address], 09/21/2023 02:17:56 09/20/20 23 09/20/2023 CBC W/DIF F immature granulocytes 0.3 % no define d refere nce range Not Available [facility] (Lab) [address] [facility], [place], [address], 09/21/2023 02:17:56 09/20/20 23 09/20/2023 CBC W/DIF F absolute neutrophils 4.0 10'3/ uL 1.1-6. 0 Not Available [facility] (Lab) [address] [facility], [place], [address], 09/21/2023 02:17:56 09/20/20 23 09/20/2023 CBC W/DIF F absolute lymphocytes 1.4 10'3/ uL 0.7-3. 4 Not Available [facility] (Lab) [address] [facility], [place], [address], 09/21/2023 02:17:56 09/20/20 23 09/20/2023 CBC W/DIF F absolute monocytes 0.4 10'3/ uL 0.3-1. 0 Not Available [facility] (Lab) [address] [facility], [place], [address], 09/21/2023 02:17:56 09/20/20 23 09/20/2023 CBC W/DIF F absolute eosinophils 0.1 10'3/ uL 0.0-0. 6 Not Available [facility] (Lab) [address] [facility], [place], [address], 09/21/2023 02:17:56 09/20/20 23 09/20/2023 CBC W/DIF F absolute basophils 0.1 10'3/ uL 0.0-0. 1 Not Available [facility] (Lab) [address] [facility], [place], [address], 09/21/2023 02:17:56 09/20/20 23 09/20/2023 CBC W/DIF F absolute immature granulocytes 0.0 10'3/ uL 0.00-0 .10 09/21 1:13 AM: P indic ates parti al resul ts on a panel have been relea sed. Addit ional resul ts will follo w. 09/21 1:13 AM: This resul t has been final verif ied. No addit ional or ortiz ed resul ts are expec iwona. Not Available [facility] (Lab) [address], [place], [address], 09/21/2023 02:17:56 08/15/2008/15/2023 US, trans vagin al No observ ation record ed. [facility] [address], [place], [address], 08/15/2023 17:55:27 08/15/2008/15/2023 US, angeles s No observ ation record ed. [facility] [address], [place], [address], 08/15/2023 17:55:36 08/15/2008/15/2023 US, trans vagin al No observ ation record ed. SAV Saez [address], [place], [address], 08/17/2023 12:23:11 08/24/20 US, angeles s No observ ation record ed. [email or web address] Not Available 08/24 15:49:50 05/21/20 24 05/21/2024 US, breas t No observ ation record ed. [email or web address] [facility] [address], [place], [address], 05/28/2024 17:11:13 05/21/20 24 05/21/2024 mikayla tristan/dante barakat t No observ ation record ed. [facility] Joseph [address] [place], [address], 05/24/2024 16:53:42 Result Notes None recorded. Problems Name Problem SNOMED Code Status Onset Date Resolution Date Notes Provider Name and Address Organization Details Recorded Time Abnormal finding on antenata l screenin g of mother [id number] Completed 201701/13/2022 Abnormal hematolo g finding on antenata l screenin g of mother;R ecorded Elsewher e: No Locat ion: Kisha ahrman [facility] S ource: EHR Environmental Health Specialist princess: N Practi ce ID: 0001 Miles lable Time: 04:00:00 PM Klarissa Edmonds [facility] 2 14:41:11 Gestatio n period, 35 weeks [id number] Completed 201701/13/2022 35 weeks gestatio n of pregnanc y;Record ed Elsewher e: No Locat ion: [facility] harman [facility] S ource: EHR Environmental Health Specialist princess: N Practi ce ID: 0001 Miles lable Time: 02:00:00 PM Klarissa Edmonds [facility] 2 14:41:47 Gestatio n period, 37 weeks [id number] Completed 201701/13/2022 37 weeks gestatio n of pregnanc y;Record ed Elsewher e: No Locat ion: [facility] harman [facility] S ource: EHR Environmental Health Specialist princess: N Practi ce ID: 0001 Miles lable Time: 12:06:00 PM Klarissa Edmonds [facility] 2 14:41:50 Secondar y amenorrh ea [id number] Completed 201701/13/2022 Secondar y amenorrh ea;Recor ded Elsewher e: No Locat ion: [facility] harman [facility] S ource: EHR Environmental Health Specialist princess: N Practi ce ID: 0001 Miles lable Time: 02:45:00 PM Klarissa Edmonds [facility] 2 14:42:37 Pregnanc y detectio n examinat ion Completed 201701/13/2022 Encounte r for pregnanc y test, result positive ;Recorde d Elsewher e: No Locat ion: [facility] harman [facility] S ource: EHR Environmental Health Specialist princess: N Practi ce ID: 0001 Miles lable Time: 03:15:00 PM Klarissa centeno [facility] 2 14:42:25 Oligohyd ramnios Completed 201701/13/2022 Oligohyd ramnios, third trimeste r, not applicab le or unsp;Rec orded Elsewher e: No Locat ion: [facility] S ource: EHR Environmental Health Specialist princess: N Practi ce ID: 0001 Miles lable Time: 11:30:00 AM Klarissa centeno, [facility] 2 14:41:28 Gestatio n period, 38 weeks [id number] Completed 201701/13/2022 38 weeks gestatio n of pregnanc y;Record ed Elsewher e: No Locat ion: [facility] S ource: EHR Environmental Health Specialist princess: N Practi ce ID: 0001 Miles lable Time: 11:30:00 AM Klarissa centeno, [facility] 2 14:41:51 Primigra corine [id number] Completed 201101/13/2022 Supervis ion of normal first pregnanc y;Practi ce ID: 0001 [facility] 14:42:28 Speciali zed medical examinat ion Completed 201101/13/2022 Routine gynecolo gical examinat ion;Prac estrella ID: 0001 Klarissa centeno, [facility] 2 14:42:44 anatomy study Completed 201101/13/20[facility];Raymon baird ID: 0001 Klarissa centeno, [facility] 2 14:41:25 Maternal care for diminish ed movement s Completed 201101/13/2022 Decrease d movement s, affectin g manageme nt of mother, antepart um conditio n or complica tion;Pra ctice ID: 0001 Klarissa centeno, [facility] 2 14:42:19 Normal pregnanc y in multigra corine [id number] Completed 201701/13/2022 Encounte r for suprvsn of normal pregnanc y, second trimeste r;Practi ce ID: 0001 Klarissa centeno, [facility] 2 14:42:20 Gestatio n period, 25 weeks [id number] Completed 201701/13/2022 25 weeks gestatio n of pregnanc y;Practi ce ID: 0001 Klarissa centeno, [facility] 14:41:35 Gestatio n period, 28 weeks [id number] Completed 201701/13/2022 28 weeks gestatio n of pregnanc y;Practi ce ID: 0001 Klarissa centeno, [facility] 2 14:41:37 Gestatio n period, 32 weeks [id number] Completed 201701/13/2022 32 weeks gestatio n of pregnanc y;Practi ce ID: 0001 Klarissa centeno, [facility] 14:41:40 Gestatio n period, 33 weeks [id number] Completed 201701/13/2022 33 weeks gestatio n of pregnanc y;Practi ce ID: 0001 Klarissa centeno, [facility] 14:41:43 Gestatio n period, 34 weeks [id number] Completed 201701/13/2022 34 weeks gestatio n of pregnanc y;Practi ce ID: 0001 Klarissa centeno, [facility] 14:41:45 Gestatio n period, 36 weeks [id number] Completed 201701/13/2022 36 weeks gestatio n of pregnanc y;Practi ce ID: 0001 Klarissa centeno [facility] 2 14:41:48 Finding related to pregnanc y [id number] Completed 201101/13/2022 CERVICAL SHORTENI NG-ANTE; Practice ID: 0001 Klarissa centeno [facility] 2 14:41:31 Routine antenata l care Completed 201101/13/2022 Supervis ion of other normal pregnanc y;Practi ce ID: 0001 Klarissa centeno [facility] 2 14:42:31 Disorder of amniotic cavity AND/OR membrane [id number] Completed 201101/13/2022 Unspecif ied problem associat ed with amniotic cavity and membrane s, antepart um;Pract ice ID: 0001 Klarissa centeno [facility] 2 14:41:21 Delivery normal [id number] Completed 201101/13/2022 Normal delivery ;Practic e ID: 0001 Klarissa centeno [facility] 2 14:41:20 Single live from singleto n pregnanc y [id number] Completed 201101/13/2022 Mother with single liveborn ;Practic e ID: 0001 Klarissa centeno [facility] 2 14:42:39 Postpart um care Completed 201101/13/2022 Routine postpart um follow-u p;Practi ce ID: 0001 Klarissa centeno [facility] 2 14:42:[address] Concept Completed 201701/13/2022 Encntr for cloth tearer exam (general ) (routine ) w/o abn findings ;Practic e ID: 0001 Klarissa centeno [facility] 2 14:42:42 Uterine size for dates discrepa ncy Completed 201701/13/2022 Uterine size-mattie e discrepa ncy, first trimeste r;Practi ce ID: 0001 Klarissa Edmonds [facility] 2 14:42:47 Finding of contents of cervix [id number] Completed 201701/13/2022 Weeks of gestatio n of pregnanc y not specifie d;Practi ce ID: 0001 Klarissa Edmonds [facility] 2 14:41:26 Gestatio n period, 9 weeks [id number] Completed 201701/13/2022 9 weeks gestatio n of pregnanc y;Practi ce ID: 0001 Klarissa Edmonds [facility] 2 14:42:13 Antenata l screenin g Completed 201701/13/2022 Encounte r for antenata l screenin g for nuchal transluc ency;Pra ctice ID: 0001 Klarissa Edmonds [facility] 2 14:41:13 Rubella screenin g status [id number] Completed 201701/13/2022 Encounte r for antenata l screenin g, unspecif ied;Prac estrella ID: 0001 Klarissa Edmonds [facility] 2 14:42:33 Pregnanc y, childbir th and puerperi um finding Completed 201701/13/2022 Oth pregnanc y related conditio ns, second trimeste r;Practi ce ID: 0001 Klarissa centeno, [facility] 2 14:41:14 Dizzines s and giddines s [id number] Completed 201701/13/2022 Dizzines s and giddines s;Practi ce ID: 0001 Klarissa Edmonds [facility] 2 14:41:23 Gestatio n period, 22 weeks [id number] Completed 201701/13/2022 22 weeks gestatio n of pregnanc y;Practi ce ID: 0001 Klarissa Edmonds [facility] 2 14:41:33 Contrace ptive sheath status [id number] Completed 201801/13/2022 Encounte r for routine checking of IUD;Phillip rded Elsewher e: No Locat ion: [facility] S ource: EHR Environmental Health Specialist princess: N Practi ce ID: 0001 Miles lable Time: 02:00:00 PM Klarissa Edmonds [facility] 2 14:41:18 Insertio n of intraute rine contrace ptive device Completed 201701/13/2022 Encounte r for insertio n of intraute rine contrace ptive device;R ecorded Elsewher e: No Locat ion: [facility] S ource: EHR Environmental Health Specialist princess: N Practi ce ID: 0001 Miles lable Time: 04:00:00 PM Klarissa Edmonds [facility] 2 14:42:16 Pregnanc y test negative [id number] Completed 201701/13/2022 Encounte r for pregnanc y test, result negative ;Recorde d Elsewher e: No Locat ion: [facility] S ource: EHR Environmental Health Specialist princess: N Practi ce ID: 0001 Miles lable Time: 04:00:00 PM Klarissa Edmonds [facility] 2 14:42:26 Infectio n screenin g Completed 201701/13/2022 Encounte r for screenin g for oth infec/pa rastc diseases ;Recorde d Elsewher e: No Locat ion: [facility] S ource: EHR Environmental Health Specialist princess: N Practi ce ID: 0001 Miles lable Time: 02:45:00 PM Klarissa Edmonds [facility] 2 14:42:14 Syphilis test finding [id number] Completed 201701/13/2022 Encntr screen for infectio ns w sexl mode of transmis s;Record ed Elsewher e: No Locat ion: Lizzeth hammer [facility] S ource: EHR Environmental Health Specialist princess: N Practi ce ID: 0001 Miles lable Time: 02:45:00 PM Klarissa Edmonds [facility] 2 14:42:46 Gestatio n period, 39 weeks [id number] Completed 201701/13/2022 39 weeks gestatio n of pregnanc y;Record ed Elsewher e: No Locat ion: [facility] harman [facility] S ource: EHR Environmental Health Specialist princess: N Practi ce ID: 0001 Miles lable Time: 12:00:00 PM [facility] 2 14:42:11 Gestatio n period, 31 weeks [id number] Completed 201701/13/2022 31 weeks gestatio n of pregnanc y;Record ed Elsewher e: No Locat ion: Lizzeth ahmmer [facility] S ource: EHR Environmental Health Specialist princess: N Practi ce ID: 0001 Miles lable Time: 03:00:00 PM Klarissa Edmonds [facility] 2 14:41:38 Procedur e on genitour inary system Completed 201701/13/2022 Encounte r for surgical aftercar e followin g surgery on the genitour inary system;R ecorded Elsewher e: No Locat ion: Lizzeth hammer [facility] S ource: EHR Environmental Health Specialist princess: N Practi ce ID: 0001 Miles lable Time: 11:15:00 AM Klarissa Edmonds [facility] 2 14:42:30 Postoper ative care Completed 201701/13/2022 Encounte r for surgical aftercar e followin g surgery on the genitour inary system;R ecorded Elsewher e: No Locat ion: Lizzeth hammer [facility] S ource: EHR Environmental Health Specialist princess: N Practi ce ID: 0001 Miles lable Time: 11:15:00 AM Klarissa Edmonds [facility] 2 14:42:22 Lochia finding Completed 201701/13/2022 Encounte r for routine postpart um follow-u p;Sandeepti ce ID: 0001 Klarissa Edmonds [facility] 2 14:42:17 Clinical finding Completed 201701/13/2022 Maternal care for breech presenta tion, unsp;Pra ctice ID: 0001 Klarissa Edmonds [facility] 14:41:16 Problem Notes None recorded. Procedures Surgical History Date Name Laterality Status Provider Name and Address Organization Details Recorded Time 07/31/20 23 Date of Last Pap Smear completed Amelia Alves [facility] 05/13/2024 11:27:28 02/26/20 23 Endometrial Biopsy completed CHAYO Duncan- [address], [place], [address], [facility] 02/26/2023 18:56:53 02/26/20 23 [facility]25[facility]23 10:06:34 07/30/20 18 section completed Klarissa Edmonds [facility] 01/13/2022 15:46:40 12/29/19 11 termination of completed Divinahowie Esparza [facility] 02/27/2023 16:59:39 09/29/20 10 termination of completed Divinahowie Esparza [facility] 02/27/2023 16:59:45 Imaging Results None recorded. Procedure Notes None recorded. Medical Equipment None Reported. Allergies Allergen ID Allergen Name Allergen Category Reaction Reaction Severity Criticality Documentation Date Start Date Code Code System Note Provider Name and Address Organization Details Recorded Time 2414 amoxicill in medicatio n diarrhea rash vomiting Not available Not available Not available Not available 08/13/2020 723 RxNorm Maegan centeno [place] [facility] 0 10:14:00 Medications Name Sig Start Date Stop Date Status Note LastModified by Organization Details LastModified Time Prometriu m 200 mg capsule Take 1 capsule every day by oral route for 30 days. 02/22 completed Not Available Not Available Not Available Mirena 21 mcg/24 hr (up to 8 years) 52 mg intrauter ine device 01/13 completed Prescrib ed Elsewher e: Yes Loca tion: [facility] odify By: ken riggs DateTime : 09/12/20 18 04:00:00 PM Not Available Not Available Not Available meloxicam 15 mg tablet TAKE 1 TABLET BY MOUTH EVERY DAY active Not Available Not Available No t Available prednison e 20 mg tablet TAKE 3 TABLETS BY MOUTH EVERY DAY 05/14 completed Not Available Not Available Not Available Prometriu m 100 mg capsule take 1 capsule by oral route every day 12/15 completed Prescrib ed Elsewher e: No Locat ion: [facility] odify By: danielle raya DateTime : 12/06/19 18 03:15:00 PM Not Available Not Available Not Available amlodipin e 5 mg tablet TAKE 1 TABLET BY MOUTH DAILY 05/14 completed Not Available Not Available Not Available ondansetr on 8 mg disintegr ating tablet DISSOLVE 1 TABLET ON THE TONGUE TWICE DAILY active Not Available Not Available No t Available mupirocin 2 % topical ointment RAYNA SML AMT EXT AA TID FOR 7 DAYS 02/21 completed Not Available Not Available Not Available Vitamin D2 1,250 mcg (50,000 unit) capsule take 1 capsule (01448VD ITS) by oral route every week 04/26 completed Prescrib ed Elsewher e: No Locat ion: [facility] odify By: jeannette raya DateTime : 01/20/20 12 05:59:04 PM Not Available Not Available Not Available norethind ralf (contrace ptive) 0.35 mg tablet Take 1 tablet every day by oral route. 05/14 completed Not Available Not Available Not Available multivita min capsule take 1 capsule by oral route every day 04/26 completed Prescrib ed Elsewher e: Yes Loca tion: [facility]ify By: jeannette raya DateTime : 12/12/19 12 09:15:00 AM Not Available Not Available Not Available pregabali n 50 mg capsule TAKE 1 CAPSULE BY MOUTH TWICE DAILY 02/21 completed Not Available Not Available Not Available amlodipin e active Not Available Not Available Not Available tranexami c acid 650 mg tablet active Not Available Not Available Not Available Nadiavely-D uo DHA 29 mg-1 mg-400 mg oral pack take by Oral route for 30 days 03/16 completed Prescrib ed Elsewher e: No Locat ion: [facility] odify By: shawn flores DateTime : 02/16/20 12 02:15:00 PM Not Available Not Available Not Available OUTSOLE SPLICER-PNV-DH A 28 mg iron-1 mg-200 mg capsule take 1 capsule by oral route every day 01/13 completed Prescrib ed Elsewher e: No Locat ion: [facility] odify By: danielle raya DateTime : 12/06/19 18 03:15:00 PM Not Available Not Available Not Available Vitals Date Recorded Body height Body mass index (BMI) Body weight Systolic And Diastolic Systolic And Diastolic Provider Name and Address Organization Details Last Updated DateTime 05/14/2024 163.2 cm 24.5 kg/m2 04950.3 g 141/91 mm[Hg] 138/88 mm[Hg] Amelia Alves [facility] 15:42:35 Date Recorded Body height Body mass index (BMI) Body weight Systolic And Diastolic Provider Name and Address Organization Details Last Updated DateTime 09/04/2023 163.2 cm 24.4 kg/m2 38286.71 g 152/98 mm[Hg] Maryse Heart [facility] 09/04/2023 17:17:55 Date Recorded Body height Body mass index (BMI) Body weight Systolic And Diastolic Provider Name and Address Organization Details Last Updated DateTime 10/11/2023 163.2 cm 24.7 kg/m2 49453.89 g 133/92 mm[Hg] Maryse Heart [facility] 10/11/2023 16:27:00 Social History Question Answer Notes LastModified by Organizat ion Details LastModified Time Tobacco Smoking Status Current Every Day Smoker Yue Zarate taryn, [facility] 10/11/2023 16:15:15 Do You Have An Advance Directive? No Information not available 01/13/2022 How Many Years Have You Consumed Alcohol? 0 Information not available 01/13/2022 Are You Blind Or Do You Have Difficulty Seeing? No Information not available 01/13/2022 What Is Your Level Of Caffeine Consumption? Occasional Information not available 01/13/2022 How Much Tobacco Do You Chew? None Information not available 01/13/2022 In The 14 Days Before Symptom Onset, Have You Had Close Contact With A Laboratory-confir med COVID-19 While That Case Was Ill? No Information not available 01/13/2022 In The 14 Days Before Symptom Onset, Have You Had Close Contact With A Person Who Is Under Investigation For COVID-19 While That Person Was Ill? No Information not available 01/13/2022 Have You Been To An Area Known To Be High Risk For COVID-19? No Information not available 01/13/2022 Are You Deaf Or Do You Have Serious Difficulty Hearing? No Information not available 01/13/2022 What Type Of Diet Are You Following? REGULAR Information not available 01/13/2022 What Is The Highest Grade Or Level Of School You Have Completed Or The Highest Degree You Have Received? [id number] Information not available 01/13/2022 Do You Use Protection During Sex? No Information not available 01/13/2022 Do You Use Your Seat Belt Or Car Seat Routinely? Yes Information not available 01/13/2022 Do You Have Smoke And Carbon Monoxide Detectors In Your Home? No Information not available 01/13/2022 At What Age Did You Start Smoking Tobacco? 15 Information not available 01/13/2022 How Much Tobacco Do You Smoke? 1 PPD Information not available 01/13/2022 Do You Use Sunscreen Routinely? No Information not available 01/13/2022 How Many Years Have You Smoked Tobacco? 20 Information not available 01/13/2022 Have You Used IV Drugs? No Information not available 01/13/2022 Do You Have Difficulty Walking Or Climbing Stairs? No [email or web address] Information not available 10/11/2023 Sex: Unknown Functional Status Question Answer Note LastModified by Organizat ion Details LastModified Time Do you use any illicit or recreational drugs? No Information not available 01/13/2022 What is your level of alcohol consumption? None Information not available 01/13/2022 Are you able to walk? YESWOREST Information not available 01/13/2022 Are you able to care for yourself? Yes [email or web address] Information not available 10/11/2023 What is your occupation? Self employed Information not available 01/13/2022 Do you have difficulty dressing or bathing? No [email or web address] Information not available 10/11/2023 What is your exercise level? Occasional Information not available 01/13/2022 Mental Status Question Answer Note LastModified by Organization D etails LastModified Time Do you feel stressed (tense, restless, nervous, or anxious, or unable to sleep at night)? [id number] Information not available 01/13/2022 Family History Relationship Description Onset Age of this Age Resolved Age Notes LastModified by Organization Details LastModified Time Paternal Grandmother Malignant tumor of breast Great grandm other [email or web address] Not available 05/14/2024 15:18:59 Medical History Condition Response Allergies (Food, seasonal, environmental ) N Other Y Drug/Latex Allergies/Reactions N Breast Cancer N Blood Transfusion N Dermatologic Disorders N Lung Disease N Defects or Inherited Disease N Breast Problem N Gestational Diabetes N Hematologic disorders N Anesthesia Complications N History of STI N Deep Vein Thrombosis N Polycystic ovary syndrome N Anxiety Disorder N Autoimmune disease N Arthritis N Infertility N Polyps N Acid Reflux (GERD) N History of abnormal pap N Cancer N Stroke N Varicosities N Neurologic/Epilepsy N Endometriosis N High Cholesterol N Fibromyalgia N Headaches N Kidney Disease N Heart Problems N Thyroid Problems Y Kidney or Bladder Problems N GI Problems N Eating Disorder N Anemia N Art (IVF or FET) N Psychiatric Illness N Ovarian Cancer N Diabetes N Pulmonary (TB, Asthma) N Hepatitis/Liver Disease N No Past Medical History N Eczema N Urinary Tract Infection N Abuse/Domestic Violence N Asthma N Trauma/Violence N Depression/ depression N Heart Disease N Pre-Eclampsia N Hypertension N Osteoporosis N Thrombophilias N Gynecological History Statement/Question Response Abnormal Pap N Flow Heavy Date of Last Mammogram Date of LMP 04/27/2024 On BCP's at Conception? N N Was last menstrual period normal Y STIs/STDs N HPV Vaccine N Duration of Flow (days) 7 Current Control Method None Frequency of Cycle (Q days) 28 Sexually Active? Y N/A Date of DEXA bone scan Age of first menstrual cycle 12 Date of Last Pap Smear 07/31/2023 Sexual Problems? N LMP Unknown N Obstetrics History GPAL:G 5 P 0 0 3 2 Type Value Induced 2 Spontaneous 1 Living 2 Total 5 Past Encounters Encounter ID Performer Location Encounter Start Date Encounter Closed Date Diagnosis/Indication Diagnosis SNOMED-CT Code Diagnosis ICD10 Code Diagnosis Note [id number] [facility] [address] [address] 08/13/2020 10:06:00 08/13/2020 11:25:08 Discharge from nipple 50577844 N64.52 Exam is +milky nipple d/c bilaterall y; very small amt but able to elicit it manual stimulatio n. Also has a very small boil near her nipple of right breast that appears to be resolving. We agreed to Breast US & prolactin levels for nipple discharge and abx ointment for small pea size superficia l boil of right breast. Time spent in visit is a total of 15 mins with at least 50% of visit consisting of counseling and review of plan of care. Elevated blood-pressure reading without diagnosis of hypertension 549360866 R03.0 BP is 140/90 today. She does admit to feeling a bit dizzy at times. She does not have a PCP but does have a BP cuff at home. We agreed to referral to PCP Dr. Denis Whitaker & monitor BP at home. ED precaution s if sx's persist or worsen. Understand ing verbalized . [id number] [facility] [address] [address] 01/13/2022 15:25:31 01/13/2022 16:19:11 Gynecologic examination 42944821 Z01.419 Take Calcium with Vitamin D 1200mg daily if not receiving in daily diet. It is strongly advised to have an annual flu shot and up can obtain at most pharmacies . If you have not had a TDap shot in the last 10 years you should obtain one as well. Discussed with patient & provided with informatio n regarding Gardisil vaccine to prevent the 4 strains for HPV that cause cervical cancer if under age 26. Encourage safe sexual practices, to use condoms and limit partners if not already in a monogamous relationsh ip. Do monthly self breast exams. Have mammogram yearly or every other year depending on family history. BRCA testing is now available for patients with strong genetic history of female cancer. If interested contact the office. Engage in daily exercise of low impact aerobic exercise 45-60 minutes 4-5 times weekly. Avoid tobacco and illicit drugs as well as using moderation with alcohol intake less than 1-2 8 oz beverages daily. This lifestyle behavior pattern will lead to less health conditions and longer life span. If BMI greater than 25 weight watchers or dietary consult advised. Patient received above instructio ns, and questions have been answered. If you have any questions please call or respond to this email. Patient was made aware of the patient portal and may obtain a paper copy of today's plan if desired. Pap/hpv sent STD Screen declined Genetic Screen discussed Colon Screen n/a Dexa Screen n/a Routine Labs PCP managed Duong [id number] N 94.0 Suspect painful ovulation randomly some months.Her exam today is WNLI have advised her if she has this pain again & is concerned to contact our office and schedule a TVUS when she is feeling this sx.She is in agreement. [id number] CHAYO Mayfield [place] [address] [address] 02/21/2023 10:42:05 02/21/2023 11:42:16 Abnormal uterine bleeding [id number] 9100 N93.9 The patient and I discussed the various causes of abnormal uterine bleeding, including polyps, fibroids, hyperplasi a, atypia, anovulatio n, etc. We reviewed the typical evaluation with labs, pelvic US and possible endometria l biopsy. Briefly discussed the options available for treatment (depending on the results of evaluation ) such as hormonal treatment (OCPs, progestins ), Mirena, endometria l ablation, and surgery. We spent more than 30 minutes face to face. UPT (-)STI testing sentlabs orderedwe reviewed pelvic u/s done at recent ER visit, small ovarian cyst bilaterall y - otherwise normalshe is currently in no pain, bleeding has slowed. No longer passing large clots. Changing pads about 2-3 times per day.we agreed to daily prometrium to help control her current episode of bleeding. Take daily until she returns to office for EMBrecomme nd EMB, discussed R/B of procedures he will RTC for EMB (she would like a Monday appointmen t - may have to see Dr. Tian or CF for EMB if needing a Monday), continue to abstain until procedurep recautions discussed, if heavy bleeding returns/ any concerning symptoms need to notify the office/ED for evaluation . Time spent in visit is a total of 35 mins with at least 50% of visit consisting of counseling and review of plan of care. [id number] Valeria Godoy , [facility] [address] [address] 02/25/2023 09:40:41 02/26/2023 22:14:20 Screening procedure [id number] Z13.9 Abnormal u terine bleeding 7213546239 9100 N93.9 EMBx sentSee procedure notes Discussed d/c Lysteda due to voiced pain in leg when uses it (right side).Unab le to tolerate PO progestero ne or other hormones; causes extreme nausea/jose frances/racin g heart.Had to use Vaginal/re ctal progestero ne in the past (during ) .Hx of Hyperprola ctanemia/T hyroid issues/Calvin gomenorrhe a.Hx of MRI-no pituitary adenoma/ot her tumor.Kimberlylinda perrin lab work she voices she completedW e discussed considerin g Depo injection to help this bleeding or possibly vaginal supps.She is open to this but would like to wait for results to return.We discussed the possiblity of D&C or other surgical/p rocedural options if we cannot get AUB to cease.Woul d need MD consult which is likely at this point to discuss options for management of current issue.Ashkan es coagulatio n disorders [id number] Khadijah Abraham, Y[facility]ANNES [place] [address] [address] 07/31/2023 12:40:01 07/31/2023 14:09:33 Gynecologic examination 45852303 Z01.419 WWEBC - declinedno hx of abnormal papspap updatedSTI testing added to papblood STI testing declinedUT D with PCP for routine labs Menorrhagia 459332287 N9 2.0 previous EMB done 02/25/2023 - benignwill update TVUSreview ed options to help with heavy periods (unable to tolerate PO progestero ne or other hormonal methods due to nausea/jose frances). Tried IUD in the past and did not like it.would recommend MD consult moving forward for further management options/pop rgical options Encouraged PCP f/u for BP check. Precaution s reviewed Encouraged adequate Calcium with Vitamin D 1200mg daily .It is strongly advised to have an annual flu shot and up can obtain at most pharmacies . If you have not had a TDap shot in the last 10 years you should obtain one as well.Discu ssed with patient & provided with informatio n regarding Gardisil vaccine to prevent the 4 strains for HPV that cause cervical cancer if under age 26.Encoura ge safe sexual practices, to use condoms and limit partners if not already in a monogamous relationsh ip.Do monthly self breast exams.Have mammogram yearly or every other year depending on family history. BRCA testing is now available for patients with strong genetic history of female cancer. If interested contact the office.Eng age in daily exercise of low impact aerobic exercise 45-60 minutes 4-5 times weekly. Avoid tobacco and illicit drugs as well as using moderation with alcohol intake less than 1-2 8 oz beverages daily. This lifestyle behavior pattern will lead to less health conditions and longer life span. If BMI greater than 25 r dietary consult advised.Jhonatan garcia received above instructio ns, and questions have been answered. If you have any questions please call or respond to this email. Patient was made aware of the patient portal and may obtain a paper copy of today's plan if desired. Time spent in visit is a total of 45 mins with at least 50% of visit consisting of counseling and review of plan of care. Venereal d isease screening [id number] Z11.3 [id number] Neeraj Tian MD [place] [address],[place] [address] 08/15/2023 16:41:27 08/15/2023 17:28:45 Abnormal uterine bleeding [id number] 9100 N93.9 [id number] Neeraj Tian MD [place] [address],[place] [address] 09/04/2023 17:07:24 09/06/2023 09:30:24 Endocervical polyp 7938693 N84.1 Menorrhagia 800687736 N9 2.0 This patient is a 37-year-ol d female with menorrhagi a endometria l lesion. We discussed these 2 complex issues in great detail. Talked about the etiology, natural history, treatment of each of these problems. Patient has limited hormonal options for controllin g bleeding. We agreed to norethindr one oral contracept sebastian pills. We also agreed to hysterosco pic removal of the endometria l lesion and evaluation of the endometriu m. We spent over 40 minutes face-to-fa ce. More than 50% was counseling . We made a decision to perform surgery. We have agreed to proceed with hysterosco py D&C with possible polypectom y. She understand s the risks, benefits, and alternativ es. She is completed the informed consent process and is ready to proceed. [id number] Neeraj Tian MD [place] [address],[place] [address] 10/05/2023 14:12:18 10/05/2023 14:14:43 [id number] Neeraj Tian MD [place] [address] [address] 10/11/2023 16:15:10 10/11/2023 16:45:37 Endometrial polyp 6139563438 N84.0 37-year-ol d female presents for follow-up on menorrhagi a endometria l polyp. The polyp was resected. She is doing well. She has some spotting. We will observe her as she continues to heal. She is no complaints today. She is doing well. She will follow-up as needed. [id number] CHAYO Mayfield [place] [address] [address] 05/14/2024 15:00:22 05/14/2024 16:17:39 Pain of breast 49766790 N64.4 recommende d bilateral diagnostic mammogram with right breast u/sorder given to pt, encouraged to schedulequ estions answeredwi ll reach out to pt with results when available, precaution s discussed Time spent in visit is a total of 18 mins with at least 50% of visit consisting of counseling and review of plan of care. Health Concerns Section Related Observation LastModified by Organization Detai ls LastModified Time None Recorded Concern Status LastModified by Organization Details LastModified Time None Recorded Advance Directives Directive N: Payers Insurance Date Sequence Insurance Name Policy Number Policy Bill Covered Member ID Bill Member ID Guarantor Name 11/23/2021 SLIDING FEE SCHEDULE - DISCOUNT Joann Ezhelik 08/15/2023 *SELF PAY* Ol ga Ezhelik 05/13/2024 1 [facility] - DOS ON OR AFTER 21 (MEDICAID REPLACEMENT - HMO) Joann Ezhelik [id number] Joann Ezhelik 09/28/2023 1 [facility] - DOS PRIOR TO 2021 (MEDICAID REPLACEMENT - HMO) Joann Ezhelik [id number] Joann Ezhelik Notes Date Note Type Note Provider Name and Address Organization Details Recorded Time 09/04/2023 text/html This patient is a 37-year-old female with menorrhagia endometrial lesion. We discussed these 2 complex issues in great detail. Talked about the etiology, natural history, treatment of each of these problems. Patient has limited hormonal options for controlling bleeding. We agreed to norethindrone oral contraceptive pills. We also agreed to hysteroscopic removal of the endometrial lesion and evaluation of the endometrium. We spent over 40 minutes [id number]. More than 50% was counseling. The patient understands the procedure. The procedure was described to the patient in great detail. the patient also understands the risks. The risks were also explained in detail. She understands that injuries May occur during surgery. She understands these injuries can result in hospitalization, more surgery, and severe illness. She understands there is risk of hemorrhage and infection. Neeraj Tian MD [address], [place], [address], [facility] 09/05/2023 20:18:24 10/11/2023 text/html 37-year-old kindra steele presents for follow-up on menorrhagia endometrial polyp. The polyp was resected. She is doing well. She has some spotting. We will observe her as she continues to heal. She is no complaints today. She is doing well. She will follow-up as needed. Neeraj Tian MD [address], [place], [address], [facility] 10/11/2023 16:45:26 05/14/2024 text/html 38yopresents for right breast painsymptoms for the past weektender to touch, comes and goes LMP 04/27/2024not currently SA no nipple dischargeneg left breast symptomsneg n/v/fneg flu-like symptoms CHAYO [place] [address], [place], [address], [facility] 05/14/2024 16:02:10 OBGyn Episode Ob Episode Information Episode Created Date Number of Fetuses Patient Bloodtype Patient rh Status Prepregnancy Weight lbs Domestic Partner Domestic Partner Phone Father Name Photographic Restorer Status 01/14/20 22 1 CLOSED Fetus Data First Name Last Name Admitted to NICU Weight (g) Sex Living Outcome Pediatric Complications Fetus ID Race Codes Race Delivery Type 3486.76 1704 F Full Term [id number] Primary Damion Calculation Initial Damion Date Initial Exam Date Initial Exam Provider Initial Ultrasound Date Last Menstrual Period Date Ultra Sound Weeks Gestation 0 Eighteen To Twenty Week Damion Update Ultra Sound Date Fundal Height At Umbil Quickening Date Ultra Sound Latest Weeks Gestation Final Damion Confirmed By Final Damion Confirmed Date Final Damion Date Ultra Sound Latest Days Gestation 0 0 Menstrual History Last Menstrual Date Menses Monthly On Bcp Conception Prior Menses Frequency Hcg Plus Date Menarche Onset Age Delivery Information Delivery Date Delivery Type Labor Anesthesia Weeks Gestation Incision Type Labor Labor Length Hrs Delivered By Post Complications Tubal Sterilization Discharge Date Comments 8 39 Discharge Information Feeding Method Contraceptive Method Maternal HG B and HCT Levels Ob Episode Information Episode Created Date Number of Fetuses Patient Bloodtype Patient rh Status Prepregnancy Weight lbs Domestic Partner Domestic Partner Phone Father Name Photographic Restorer Status 01/14/20 22 1 CLOSED Fetus Data First Name Last Name Admitted to NICU Weight (g) Sex Living Outcome Pediatric Complications Fetus ID Race Codes Race Delivery Type 4450.64 [id number] F Full Term [id number] Vaginal Delivery Damion Calculation Initial Damion Date Initial Exam Date Initial Exam Provider Initial Ultrasound Date Last Menstrual Period Date Ultra Sound Weeks Gestation 0 Eighteen To Twenty Week Damion Update Ultra Sound Date Fundal Height At Umbil Quickening Date Ultra Sound Latest Weeks Gestation Final Damion Confirmed By Final Damion Confirmed Date Final Damion Date Ultra Sound Latest Days Gestation 0 0 Menstrual History Last Menstrual Date Menses Monthly On Bcp Conception Prior Menses Frequency Hcg Plus Date Menarche Onset Age Delivery Information Delivery Date Delivery Type Labor Anesthesia Weeks Gestation Incision Type Labor Labor Length Hrs Delivered By Post Complications Tubal Sterilization Discharge Date Comments 2 40 Discharge Information Feeding Method Contraceptive Method Maternal HG B and HCT Levels Ob Episode Information Episode Created Date Number of Fetuses Patient Bloodtype Patient rh Status Prepregnancy Weight lbs Domestic Partner Domestic Partner Phone Father Name Photographic Restorer Status 01/14/20 22 1 CLOSED Fetus Data First Name Last Name Admitted to NICU Weight (g) Sex Living Outcome Pediatric Complications Fetus ID Race Codes Race Delivery Type , Induced [id number] Damion Calculation Initial Damion Date Initial Exam Date Initial Exam Provider Initial Ultrasound Date Last Menstrual Period Date Ultra Sound Weeks Gestation 0 Eighteen To Twenty Week Damion Update Ultra Sound Date Fundal Height At Umbil Quickening Date Ultra Sound Latest Weeks Gestation Final Damion Confirmed By Final Damion Confirmed Date Final Damion Date Ultra Sound Latest Days Gestation 0 0 Menstrual History Last Menstrual Date Menses Monthly On Bcp Conception Prior Menses Frequency Hcg Plus Date Menarche Onset Age Delivery Information Delivery Date Delivery Type Labor Anesthesia Weeks Gestation Incision Type Labor Labor Length Hrs Delivered By Post Complications Tubal Sterilization Discharge Date Comments 0 Discharge Information Feeding Method Contraceptive Method Maternal HG B and HCT Levels Ob Episode Information Episode Created Date Number of Fetuses Patient Bloodtype Patient rh Status Prepregnancy Weight lbs Domestic Partner Domestic Partner Phone Father Name Photographic Restorer Status 01/14/20 22 1 CLOSED Fetus Data First Name Last Name Admitted to NICU Weight (g) Sex Living Outcome Pediatric Complications Fetus ID Race Codes Race Delivery Type , Spontane ous [id number] Damion Calculation Initial Damion Date Initial Exam Date Initial Exam Provider Initial Ultrasound Date Last Menstrual Period Date Ultra Sound Weeks Gestation 0 Eighteen To Twenty Week Damion Update Ultra Sound Date Fundal Height At Umbil Quickening Date Ultra Sound Latest Weeks Gestation Final Damion Confirmed By Final Damion Confirmed Date Final Damion Date Ultra Sound Latest Days Gestation 0 0 Menstrual History Last Menstrual Date Menses Monthly On Bcp Conception Prior Menses Frequency Hcg Plus Date Menarche Onset Age Delivery Information Delivery Date Delivery Type Labor Anesthesia Weeks Gestation Incision Type Labor Labor Length Hrs Delivered By Post Complications Tubal Sterilization Discharge Date Comments 1 Discharge Information Feeding Method Contraceptive Method Maternal HG B and HCT Levels Ob Episode Information Episode Created Date Number of Fetuses Patient Bloodtype Patient rh Status Prepregnancy Weight lbs Domestic Partner Domestic Partner Phone Father Name Photographic Restorer Status 01/14/20 22 1 CLOSED Fetus Data First Name Last Name Admitted to NICU Weight (g) Sex Living Outcome Pediatric Complications Fetus ID Race Codes Race Delivery Type , Induced [id number] Damion Calculation Initial Damion Date Initial Exam Date Initial Exam Provider Initial Ultrasound Date Last Menstrual Period Date Ultra Sound Weeks Gestation 0 Eighteen To Twenty Week Damion Update Ultra Sound Date Fundal Height At Umbil Quickening Date Ultra Sound Latest Weeks Gestation Final Damion Confirmed By Final Damion Confirmed Date Final Damion Date Ultra Sound Latest Days Gestation 0 0 Menstrual History Last Menstrual Date Menses Monthly On Bcp Conception Prior Menses Frequency Hcg Plus Date Menarche Onset Age Delivery Information Delivery Date Delivery Type Labor Anesthesia Weeks Gestation Incision Type Labor Labor Length Hrs Delivered By Post Complications Tubal Sterilization Discharge Date Comments 1 Discharge Information Feeding Method Contraceptive Method Maternal HG B and HCT Levels
--- OUTSIDE RECORDS SUMMARY | 2025-05-13 00:54 | XMS_ITS | Patient Health Record ---
Author Organization [facility] Address [address] [place], [place] [address] Care Team Providers Care Medical Practice Administrator Name Role Phone El Raines Primary Care Provider Marlene Geiger Unavailable [phone] Migration, Provider Unavailable Unavailable Allergies No Known Allergies Results Component Value Reference Range Notes CT Scan : Sinuses [place]* Reviewed date:10/15/2024 10:54:01 AM Interpretation: Performing Lab: Notes/Report: Reason For Referral No Information Medications Medication SIG (Take, Route, Frequency, Duration) Notes Start Date End Date Status Pantoprazole Sodium 20 MG 1 tablet 1/2 t o 1 hour before morning meal, then 1 tablet 1/2 hour before evening meal Orally twice a day for 30 days 04/29/2025 Active NASACORT ALLERGY 24HR 55 mcg/inh 2 spray(s) in each nostril once a day for 30 days Active Nortriptyline HCl 10 MG 1 capsule at bed time Orally Once a day for 30 days 04/30/2025 Active Omeprazole Active Problems Problem Type SNOMED Code ICD Code Onset Dates Problem Status W/U Status Risk Notes Problem Postherpetic neuralgia (1183693) Other postherpetic nervous system involvement (B02.29) Active confirmed Problem Dysphagia (69070592) Dysphagia, unspecified (R13.10) Active confirmed Problem Gastroesophageal reflux disease with esophagitis (disorder) (734410044) Gastro-esophagea l reflux disease with esophagitis, without bleeding (K21.00) Active confirmed Problem Tobacco user (891776663) Nicotine dependence, cigarettes, uncomplicated (F17.210) Active confirmed Problem Chronic maxillary sinusitis (90504587) Chronic maxillary sinusitis (J32.0) Active confirmed Problem Chronic tonsillitis (78901000) Chronic tonsillitis (J35.01) Active confirmed Encounters Encounter Location Date Provider Diagnosis [facility] [address] [facility] [address] [place], [place] [id number] 10/12/2024 Provider Migration Chronic maxillary sinusitis J32.0 and Other sites of candidiasis B37.89 [facility] [address] [id number] 08/30/2024 Marlene Baazov Other postherpetic nervous system involvement B02.29 ; Other sites of candidiasis B37.89 ; Globus Sensation - Other specified s/s involving the circulatory and respiratory systems R09.89 and Dysphagia, unspecified R13.10 [facility] [address] [id number] 09/24/2024 Marlene Baazov Other sites of candidiasis B37.89 ; Chronic maxillary sinusitis J32.0 ; Gastro-esophageal reflux disease with esophagitis, without bleeding K21.00 and Nicotine dependence, cigarettes, uncomplicated F17.210 [facility] [address] [id number] 02/07/2025 Marlene Baazov Chronic maxillary sinusitis J32.0 ; Gastro-esophageal reflux disease with esophagitis, without bleeding K21.00 ; Other sites of candidiasis B37.89 and Nicotine dependence, cigarettes, uncomplicated F17.210 [facility] [address] [id number] 02/26/2025 Marlene Baazov Chronic maxillary sinusitis J32.0 ; Gastro-esophageal reflux disease with esophagitis, without bleeding K21.00 ; Other sites of candidiasis B37.89 and Nicotine dependence, cigarettes, uncomplicated F17.210 [facility] [address] [id number] 04/29/2025 Marlene Baazov Gastro-esophageal reflux disease with esophagitis, without bleeding K21.00 ; Chronic cough R05.3 ; Chronic tonsillitis J35.01 ; Other specified disorders of nose and nasal sinuses/patsy bullosa/septal perforation J34.89 and Nicotine dependence, cigarettes, uncomplicated F17.210 [facility] [place] [address] [place], [place] [id number] 04/30/2025 Marlene Wood [facility] [place] [address] [place], [place] [id number] 09/10/2024 Marlene Wood [facility] [place] [address] [place], [place] [id number] 09/12/2024 Marlene Wood Other sites of candidiasis B37.89 [facility] [place] [address] [place], [place] [id number] 04/30/2025 Marlene Wood [facility] [address] [place], [place] [id number] 05/09/2025 Marlene Wood [facility] [place] [address] [place], [place] [id number] 05/09/2025 Marlene Wood Assessments Encounter Date Diagnosis (ICD Code) Assessment Notes Treatment Notes Treatment Clinical Notes Section Notes 10/12/2024 Chronic maxillary sinusitis (ICD-10 - J32.0) 10/12/2024 Other sites of candidiasis (ICD-10 - B37.89) 08/30/2024 Other postherpetic nervous system involvement (ICD-10 - B02.29) shingles outbreak in June-resolve d but could be ocntributing to neurogenic cough/globus sensation (on the scope no mass or muscle weakness identified)---sammi ssured pt 09/24/2024 Chronic maxillary sinusitis (ICD-10 - J32.0) reviewed disc of ct soft neck (from another provider) with pt and viewed images---right maxillary sinus mucosal thickening and opacification noted. Will evaluate further with CT sinus as she does c/o occasional pressure over right cheek. On the scope today no acute infection noted or mass, or polyps. 09/24/2024 Other sites of candidiasis (ICD-10 - B37.89) Sinus and oral health Vitamins: B12, C, D, Zinc, and Folic Acid Thrush has improved, evaluated iwth scope today but not completely resolved so will txt with oral anti-fungal. 02/07/2025 Gastro-esophageal reflux disease with esophagitis, without bleeding (ICD-10 - K21.00) discussed reflux precautions and LPR informational handout given to pt---recurring globus sensation 08/30/2024 Other sites of candidiasis (ICD-10 - B37.89) Sinus and oral health Vitamins: B12, C, D, Zinc, and Folic Acid 02/07/2025 Chronic maxillary sinusitis (ICD-10 - J32.0) Previously reviewed disc of ct soft neck (from another provider) with pt and viewed images---right maxillary sinus mucosal thickening and opacification noted. Will evaluate further with CT sinus as she does c/o occasional pressure over right cheek. On the scope today no acute infection noted or mass, or polyps. pharmacy did not dispense her meds as she kaylan not bulk picker in time---never took TNS or Cefdinir 02/26/2025 Gastro-esophageal reflux disease with esophagitis, without bleeding (ICD-10 - K21.00) discussed reflux precautions and LPR informational handout given to pt---recurring globus sensation Denies sx today! 02/26/2025 Chronic maxillary sinusitis (ICD-10 - J32.0) reviewed report of ct with pt and viewed images- - resolved compared to old CT head. clear paranasal sinuses; b/l mid turbinate patsy bullosa. No sx needed. pressure and headaches are likly r/t uncontrolled HTN 04/29/2025 Chronic cough (ICD-10 - R05.3) still having intermittent dysphagia and right-sided throat discomfort, now with small tonsilliths right side. contastly clearing throat and gagging- -refer out to GI for EGD, possibly EOE bx. Also discussed neurogenic cough as etiology, she is agreeable to try 1 mo of Nortriptyline next. 04/29/2025 Gastro-esophageal reflux disease with esophagitis, without bleeding (ICD-10 - K21.00) scoped today again- -LPR not improving, recommend to change to Pantoprazole BID refer to GI for EGD and EOE bx next (previosly with normal barrium swallow eval) 09/12/2024 Other sites of candidiasis (ICD-10 - B37.89) 04/29/2025 Chronic tonsillitis (ICD-10 - J35.01) new for several months- -causing discomfort and dysphagia (failed to remove at home)- -sensistive gag reflex. brush tonsil: H2O2/tap water/mouth wash; may also try waterpik tool 08/30/2024 Globus Sensation - Other specified s/s involving the circulatory and respiratory systems (ICD-10 - R09.89) evaluated with scope and noted significant joyce growth at BOT and on dorsal tongue surface. advised patient to quit smoking. patient reassured, will call if any questions 02/26/2025 Other sites of candidiasis (ICD-10 - B37.89) on vitamins and supplements- - resolved at this time but she is constantly worried it will come back 02/07/2025 Other sites of candidiasis (ICD-10 - B37.89) on vitamins and supplements---res olved in September. Has a very stressful period at work in late september though now and had FLU A in October---end of November globus sensation returned with bitter fould taste back of throat. evalauted today with scope--recurrence of thrush BOT---will txt as previoulsy planned iwth round of Diflucan. 09/24/2024 Gastro-esophageal reflux disease with esophagitis, without bleeding (ICD-10 - K21.00) discussed reflux precautions and LPR informational handout given to pt 09/24/2024 Nicotine dependence, cigarettes, uncomplicated (ICD-10 - F17.210) advised patient to quit smoking 02/26/2025 Nicotine dependence, cigarettes, uncomplicated (ICD-10 - F17.210) Strongly advised patient to quit smoking 02/07/2025 Nicotine dependence, cigarettes, uncomplicated (ICD-10 - F17.210) advised patient to quit smoking 08/30/2024 Dysphagia, unspecified (ICD-10 - R13.10) reviewed report of ct with pt---done on 07/20/24: shows dental disease, no mass or infectious process. 04/29/2025 Other specified disorders of nose and nasal sinuses/patsy bullosa/septal perforation (ICD-10 - J34.89) on vitamins and supplements- - resolved at this time but she is constantly worried it will come back reviewed report of ct with pt and viewed images- - resolved compared to old CT head. clear paranasal sinuses; b/l mid turbinate patsy bullosa. No sx needed. pressure and headaches are likly r/t uncontrolled HTN 04/29/2025 Nicotine dependence, cigarettes, uncomplicated (ICD-10 - F17.210) Strongly advised patient to quit smoking 09/24/2024 Other 04/29/2025 Other Plan Of Treatment Pending Test Test Name Order Date CT Scan : Sinuses [place]* 02/07/2025 Cultures 04/29/2025 Refer To 04/29/2025 Insurance Providers Payer Name Payer Address Payer Phone Subscriber Number Group Number Insured Name Patient Relationship to Insured Coverage Start Date Coverage End Date [facility] [address] [place] [address] [id number] Joann Holliday Self - patient is the insured Medical (General) History Medical History History ICD Code Hypertension Smoking Surgical History Surgery Date(Month/Year) C section,uterus,polyps,
--- OUTSIDE RECORDS SUMMARY | 2025-05-13 00:54 | XMS_ITS | Clinical Summary ---
Author Organization [facility] [employer] Address [address] [place] [address] Care Team Providers Care Layer Out Plate Glass Name Role Phone El Raines MD Primary Care Provider [phone] Source Comments [facility] [employer],non-owned Affiliates and Associated Physician Practices is amultiple site organization consisting of ambulatory clinics and hospital sitesin [place], [place], [place] and [place]. This disclosure is being madepursuant to the Care Everywhere program and may not contain all information available regarding this patient. Last updated 18.[employer] Allergies No known active allergies Medications * Be aware that medications may not be up to date on this document. Alwaysverify current medications with the patient. Vit-Fe Fumarate-FA ( VITAMIN) 28-0.8 MG tablet Take 1 tablet by mouth once daily Active Active Problems Problem Noted Date Diagnosed Date Abnormal chromosomal and gen etic finding on screening of mother 06/12/2018 Overview (06/12/2018): Current NIPT is low risk. Family History Medical History Relation Name Comments CVA Maternal Grandfather Cancer-Breast Premenopausal Other Magali Grand grand mom Relation Name Status Comments Maternal Grandfather Other Magali Social History Tobacco Use Types Packs/Day Years Used Date Smoking Tobacco: Some Days Cigarettes 0.3 22.5 Started: 2002 Smokeless Tobacco: Never Alcohol Use Standard Drinks/Week Comments No 0 (1 standard drink = 0.6 oz pur e alcohol) Comments No Sex and Gender Information Value Date Recorded Sex Assigned at Not on file Legal Sex Female 12:36 PM CDT Gender Identity Not on file Sexual Orientation Not on file Last Filed Vital Signs Vital Sign Reading Time Taken Comments Blood Pressure 131/78 06/13/2018 9:41 AM CDT Pulse 101 06/13/2018 9:41 AM CDT Temperature - - Respiratory Rate - - Oxygen Saturation - - Inhaled Oxygen Concentration - - Weight 77.1 kg (170 lb) 05/21/2024 1:35 PM CDT Height 165.1 cm (5' 5) 05/21/2024 1:35 PM CDT Body Mass Index 28.29 05/21/2024 1:35 PM CDT Plan of Treatment Health Maintenance Due Date Last Done Comments LIPID TESTING 1984 HIV SCREENING 1999 HEPATITIS C SCREENING 12/23/2002 DTAP/TDAP/TD VACCINES (1 - Tdap) 2003 HEPATITIS B VACCINE (1 of 3 - 19+ 3-dose series) 2003 PNEUMOCOCCAL VACCINE (1 of 2 - PCV) 2003 PAP SMEAR 2005 HPV VACCINE (1 - 3-dose SCDM series) 2011 COVID-19 VACCINE (1 - 2023-2 5 season) 2024 DEPRESSION SCREENING 10/30/2024 INFLUENZA VACCINE (#1) 2025 MAMMOGRAM 05/21/2026 05/21/2024 ZOSTER VACCINE (1 of 2) 2034 HIB VACCINE Aged Out No longer eligi ble based on patient's age to complete this topic MENINGOCOCCAL (Group B) VACC INE SHARED DECISION-MAKING Aged Out No longer eligibl e based on patient's age to complete this topic MENINGOCOCCAL GROUPS A/C/Y/W VACCINE Aged Out No longer eligible b ased on patient's age to complete this topic Procedures Procedure Name Priority Date/Time Associated Diagnosis Comments MAMMO BILAT DIAGNOSTIC W JENNY Routine 05/21/2024 1:41 PM CDT Mastodynia from Last 3 Months or Most Recently Relevant to Health Maintenance Results * MAMMO BILAT DIAGNOSTIC W JENNY (05/21/2024 1:41 PM CDT) Anatomical Region Laterality Modality Breast Bilateral Mammography 05/21/2024 1:54 PM CDT Impressions 05/21/2024 2:15 PM CDT : No mammographic or sonographic evidence of malignancy. OVERALL ASSESSMENT: BI-RADS Category 1: Negative Examination Recommendation: Resume routine yearly mammography schedule for women over age 40 or return sooner if clinically indicated. Standard ACR guidance terminology: Continued clinical followup should be considered. Any decision to biopsy should be based on clinical grounds. > Interpreting Provider: Natalio Jacobsen MD on 05/21/2024 2:15 PM Narrative 05/21/2024 2:15 PM CDT PROCEDURE: MAMMO BILAT DIAGNOSTIC W JENNY, US BREAST RIGHT LTD CLINICAL INFORMATION (none relevant/not provided if blank): Indication: N64.4: Mastodynia Additional History: Generalized heaviness and pain in the right breast. Clinician but not patient identified palpable abnormality at the 5:00 position right breast. Most recent comparison: Patient denies prior mammography making this her baseline mammogram. Sensitivity of baseline mammograms is decreased compared with serial yearly mammograms on which evaluation for subtle changes during screening interval can be performed. TECHNIQUE: MAMMO BILAT DIAGNOSTIC W JENNY, US BREAST RIGHT LTD 1. Diagnostic mammography including 3D mammographic tomosynthesis imaging was performed. Images were interpreted with CAD. 2. Real-time ultrasound of the breast(s) with DICOM image capture as performed by the technologist and supervised by radiologist. This is a limited focused examination and not a whole breast complete screening exam. Please note, current ACR guidance does not recommend a whole breast ultrasound for nonfocal pain. FDA recommends a single BI-RADS assessment for same day multi-modality imaging. To facilitate optimal patient care, this single report includes interpretation of multiple exams: see appropriate subsections. FINDINGS: 1. MAMMOGRAPHY: Breast composition: The breasts are extremely dense, which lowers the sensitivity of mammography. No suspicious microcalcifications, masses or areas of architectural distortion. 2. ULTRASOUND The 4:00-6:00 was interrogated in the area of clinician identified palpable abnormality. No suspicious cystic, solid or inflammatory appearing lesions identified with this technique. Khadijah Abraham ELECTRONIC DATA PROCESSING AUDITOR-SOFTWARE TOOLS DEVELOPER MAMMO ORDERABLES Final Result from Last 3 Months or Most Recently Relevant to Health Maintenance [place] [address] [place] [address] [place] [address] [place] [address] [facility] SELF PAY NO INSURANCE Member Subscriber Plan / Payer (Ef fective for All Dates) Name:MireyaJoann Yesica Member ID:Not on file Relation to Subscriber:Not on file Name:JOANN FORBES Subscriber ID:Not on file Address: [address] [place] [address] [place] [address] Payer ID:Not on file Group ID:Not on file Type:Self Pay Address: [place], [place] Care Teams Layer Out Plate Glass Relationship Specialty Start Date End Date El Raines MD [address] [facility] [address] [place] [address] PCP - General Family Medicine 02/05/18
[2025-05-13 10:35] VITALS: BP 149/100; PULSE 83; RESP 20; TEMP 36.3; O2SAT 100; BMI 21.5
[2025-05-13 10:48] LABS: BEDSIDEPREGUCG Negative (Negative)
[2025-05-13] MEDS: LACTATED RINGERS 1,000 ML 150 ML IV CONT (10:51)
--- NOTE | 2025-05-13 11:02 | WPDANESEPPF ---
Anes - Initial Pre Proc Eval Procedure: Operation Date: 05/13/25 11:45 Proposed Procedures p Esophagogastroduodenoscopy - Jaime Grande MD Date/Time: 05/13/25 11:02 Surgeon: Jaime Grande MD Pre Op Diagnosis: Dysphagia, unspecified Patient Data Age: 39 Gender: F Height: 1.65 m Weight: 58.7 kg Last Vital Signs Temp 97.4 F L 05/13/25 10:35 Pulse 83 05/13/25 10:35 Resp 20 05/13/25 10:35 BP 149/100 H 05/13/25 10:35 Pulse Ox 100 05/13/25 10:35 O2 Del Method Room Air 05/13/25 10:35 Allergies Allergy/AdvReac Type Severity Reaction Status Date / Time amoxicillin AdvReac Mild Dizziness Verified 05/13/25 10:41 Home Medications ?Medication ?Instructions ?Recorded ?Confirmed ?Type omeprazole 40 mg capsule,delayed 40 mg PO DAILY esophageal spasms 07/30/24 05/13/25 Rx release #30 caps nortriptyline 10 mg capsule 10 mg PO DAILY 05/09/25 05/13/25 History Laboratory Tests 05/13/25 10:46 POC Urine HCG, Qual Negative (Negative) Patient hx anesthesia problems: none Family hx anesthesia problems: none Results Review: All pre-operative results and documents have been reviewed as part of the pre-operative evaluation. [facility] Past Medical History Medical History Uterine polyp Hypertension Tobacco abuse Dyslipidemia Social History Social History Smoking packs per day: 0.75 Smoking cigarettes per day: 15.0 Years smoked: 15 Smoking pack-years: 11.25 Smoking status: Current every day smoker Tobacco type: cigarettes Second hand tobacco smoke exposure: Yes Alcohol intake: current Drinks per week: 5 Alcohol use details: BEER Substance use: never Substance use type: does not use Do You Feel Safe in your Home?: Yes Lack of Transportation: No Lack of Food: Never True Current Housing: I Have Housing Concerned About Future Housing: No Difficulty Paying Gas/Electric Bills: No Difficulty Paying for Meds: No Currently Unemployed: No Education: Master's Degree or Higher Difficulty w/ Childcare or Family Care: No Living arrangements: alone Spiritual care concerns: No Anes - Eval Final PreProcedure Day of Procedure 05/13/25 11:02 Patient weight: normal Lungs: normal air movement Airway: Mallampati scale class II Neurological: alert and oriented Last oral intake: >/= 8 hours ASA classification: II Emergent: no Anesthetic plan: proceed Anesthesia type and monitoring: general GIVS and standard monitoring Results Review: All pre-operative results and documents have been reviewed as part of the pre-operative evaluation. Active smoker, 1 ppd, smoked at 9 am, pt w dysphagia. Informed Consent: The patient's anesthetic plan and its attendant risks and benefits were discussed with the patient/family/POA. Questions were solicited and answers provided to the satisfaction of the patient/family/POA.
--- NOTE | 2025-05-13 11:08 | PM.HPGS ---
History of Present Illness History of Present Illness Consent: Risks, benefits, and alternatives have been discussed and questions answered. Patient agrees to proceed with procedure. Chief complaint: Dysphagia, unspecified Narrative: Joann Gomes is a 39 year old female here for egd, sensation of food getting stuck at throat level, she had CT neck, esophagram and also has seen ENT. Review of Systems Review of Systems: All systems reviewed & are unremarkable except as noted in HPI and below PMFSH Past Medical History Medical History Uterine polyp Hypertension Tobacco abuse Dyslipidemia Social History Social History Smoking packs per day: 0.75 Smoking cigarettes per day: 15.0 Years smoked: 15 Smoking pack-years: 11.25 Smoking status: Current every day smoker Tobacco type: cigarettes Second hand tobacco smoke exposure: Yes Alcohol intake: current Drinks per week: 5 Alcohol use details: BEER Substance use: never Substance use type: does not use Do You Feel Safe in your Home?: Yes Lack of Transportation: No Lack of Food: Never True Current Housing: I Have Housing Concerned About Future Housing: No Difficulty Paying Gas/Electric Bills: No Difficulty Paying for Meds: No Currently Unemployed: No Education: Master's Degree or Higher Difficulty w/ Childcare or Family Care: No Living arrangements: alone Spiritual care concerns: No Meds Home Medications and Allergies Home Medications ?Medication ?Instructions ?Recorded ?Confirmed ?Type omeprazole 40 mg capsule,delayed 40 mg PO DAILY esophageal spasms 07/30/24 05/13/25 Rx release #30 caps nortriptyline 10 mg capsule 10 mg PO DAILY 05/09/25 05/13/25 History Allergies Allergy/AdvReac Type Severity Reaction Status Date / Time amoxicillin AdvReac Mild Dizziness Verified 05/13/25 10:41 Vital Signs Vital Signs - 24 hr 05/13/25 10:35 Temperature 97.4 F L Pulse Rate 83 Respiratory Rate 20 Blood Pressure 149/100 H Pulse Oximetry 100 Oxygen Delivery Room Air Exam Const: General: comfortable and no acute distress HENMT: Face/Nose/Sinus: Normal nares present Eyes: General: appearance normal, both eyes and all related structures Neck: Neck: no JVD Resp: Auscultation: clear to auscultation bilaterally Cardio: Rate: regular rate Rhythm: regular rhythm GI: Inspection: non-distended GI Palp: Yes Soft to palpation Skin: General skin exam: normal color Neuro: General: gait normal Speech: normal speech Extrem: General: normal to inspection Psych: Mental Status: mental status grossly normal Assessment and Plan Assessment and plan (1) Globus sensation: Code(s): R09.A2 - Foreign body sensation, throat Status: Acute Assessment and Plan: egd with bx (2) Dysphagia: Code(s): R13.10 - Dysphagia, unspecified Status: Acute
--- NOTE | 2025-05-13 11:14 | S_PTH ---
PATIENT: Joann Gomes LOC: [facility]#:[id number] AGE/SX: 39/F ROOM: RE05/13/[address]: Jaime Grande MD : [id number] BED: DIS: 05/13/2025 SPEC #: [id number] RECD: 05/13/25 13:26 STATUS: TOD REWinnie #: [id number] NATY: 05/13/25 11:[address]: Jaime Grande DEPT: [facility] Surgical RECD BY: Kathia Mcwilliams ENTERED: 05/13/25 13:27 SP TYPE: Surgical OTHR DR: El Raines MD Tissues: A - Gastric Biopsy B - Esophageal Biopsy Procedures: Hematoxylin and Eosin Stain Gross and Microscopic Level 4
[2025-05-13 11:18] VITALS: BP 135/80; PULSE 79; RESP 25; O2SAT 100
[2025-05-13 11:28] VITALS: BP 148/95; PULSE 73; RESP 24; O2SAT 100
[2025-05-13 11:38] VITALS: BP 151/91; PULSE 69; RESP 21; O2SAT 100
== END 2025-05-13 11:47 | disposition home or self-care (01) ==
PROVIDERS: Anesthesiology; PCP Emergency Medicine; Referring Provider Emergency Medicine; Visit Provider Internal Medicine Gastroenterology
PROC: 0DJ08ZZ Inspection of Upper Intestinal Tract, Via Natural or Artificial Opening Endoscopic (ICD-10-PCS; CPT 43239; principal; 2025-05-13 11:45)
DX: R13.10 Dysphagia, unspecified (principal); I10 Essential (primary) hypertension; E78.5 Hyperlipidemia, unspecified; F17.210 Nicotine dependence, cigarettes, uncomplicated
CPT/HCPCS: 43239; 88305; J2003; J2704; J7120